=== PATIENT | male | born 1965 | race African-American/Black ===

== ENCOUNTER 2017-01-15 18:24 | Inpatient (IN) | payer MEDICAID ==
[~2017-01-15] VITALS: Ht 175.3 cm; Wt 66.7 kg
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
--- NOTE | 2017-01-15 18:35 | NUR ---
DR WARREN AT BEDSIDE FOR EVAL.
[2017-01-15 18:42] LABS: BASOPHILS # (AUTO) 0.1 /CMM (0.0-0.2)
[2017-01-15] MEDS ORDERED: IV NS 0.9% 1,000 ML ONE ×2 (18:45→19:46)
[2017-01-15] MEDS ORDERED: IV SET PRIMARY 1 EA INFUS.SET MC ONE (18:45)
[2017-01-15] MEDS ORDERED: IV NS 0.9% 500 ML IV ONE (18:45)
[2017-01-15] MEDS ORDERED: AMMONIA NASAL INHALATION 1 EA PACK NAS ONE (18:46)
[2017-01-15 18:47] LABS: BASOPHILS % (AUTO) 0.8 % (0.0-2.0); HEMATOCRIT 50 % (39-51); HEMOGLOBIN 16.7 g/dL (13.5-17.5); LYMPHOCYTES # (AUTO) 0.7 /CMM (0.8-4.8); LYMPHOCYTES % (AUTO) 5.5 % (20.0-44.0); MEAN CORPUSCULAR HEMOGLOBIN 30 PG (26.0-33.0); MEAN CORPUSCULAR HGB CONC 33 g/dl (31.0-36.0); MEAN CORPUSCULAR VOLUME 91 fL (80-96); MONOCYTES # (AUTO) 1.1 /CMM (0.1-1.30); MONOCYTES % (AUTO) 8.9 % (2.0-12.0); NEUTROPHILS # (AUTO) 10.5 /CMM (1.8-8.9); NEUTROPHILS % (AUTO) 84.8 % (43.0-81.0); PLATELET COUNT (AUTO) 293 /CMM (150-450); RDW COEFFICIENT OF VARIATION 13.3 (11.5-15.0); RED BLOOD CELL COUNT(AUTO) 5.54 MIL/uL (4.5-6.0); WHITE BLOOD COUNT (AUTO) 12.4 K/uL (4.3-11.0)
[2017-01-15 18:52] LABS: CALCIUM, SERUM 8.3 mg/dL (8.5-10.1); CARBON DIOXIDE 25 mmol/L (21-32); CHLORIDE 102 mmol/L (98-107); GFR 10 mL/min (>60); GLUCOSE 101 mg/dL (74-106); POTASSIUM 4.7 mmol/L (3.5-5.1); SODIUM SERUM 140 mmol/L (136-145); UREA NITROGEN, BLOOD 34 mg/dL (7-18)
[2017-01-15] MEDS ORDERED: IV NS 0.9% 1,000 ML IV ONE ×2 (19:00→19:30)
[2017-01-15] MEDS ORDERED: IV NS 0.9% 500 ML BAG IV ONE (19:00)
[2017-01-15 19:04] LABS: APPEARANCE,URINE Clear (CLEAR); BILIRUBIN,URINE SMALL (NEGATIVE); BLOOD, URINE Moderate Ery/uL (NEGATIVE); COLOR,URINE Yellow (YELLOW); KETONES,URINE Negative (NEGATIVE); LEUKOCYTE ESTERASE ,URINE Negative (NEGATIVE); NITRITE, URINE Negative (NEGATIVE); PH,URINE 5.5 (5.0-8.0); PROTEIN,URINE 100 mg/dl (NEGATIVE); UGLUCOSE Negative (NEGATIVE); UROBILINOGEN,URINE 0.2 EU/dL (0.2)
[2017-01-15 19:04] LABS: INR 1.02 (0.87-1.13); PROTHROMBIN TIME 10.6 SECS (9.5-12.7)
--- NOTE | 2017-01-15 19:04 | NUR ---
DR CHAVEZ PROFESSIONAL GOLF TOURNAMENT PLAYER FOR [facility] PAGED FOR CONSULT
[2017-01-15 19:05] LABS: ALANINE AMINOTRANSFERASE 79 U/L (12-78); ALBUMIN 4.1 g/dL (3.4-5.0); ALKALINE PHOSPHATASE 90 U/L (46-116); ASPARTATE AMINOTRANSFERASE 285 U/L (15-37); BILIRUBIN,DIRECT 0.2 mg/dL (0.0-0.2); BILIRUBIN,TOTAL 0.7 mg/dL (0.2-1.0); SALICYLATE 3.2 mg/dL (2.8-20.0); TOTAL PROTEIN, SERUM 8.8 g/dL (6.4-8.2)
[2017-01-15 19:11] LABS: CANNABINOID, URINE NEGATIVE (NEGATIVE); PHENCYCLIDINE SCREEN,URINE NEGATIVE (NEGATIVE)
[2017-01-15 19:16] LABS: ACETAMINOPHEN < 2 ug/ml (10-30); ALCOHOL, BLOOD < 3 mg/dL (0-0)
[2017-01-15 19:17] LABS: ADD URINE CULTURE NO; BACTERIA,URINE Rare /HPF (None Seen); WBC,URINE 0-2 /HPF (0-3)
[2017-01-15 19:18] LABS: SQUAMOUS EPITHELIAL CELL,UR Few /HPF (None Seen)
[2017-01-15 19:22] LABS: ABG BASE EXCESS -8.8 mmol/L; ABG OXYGEN SATURATION 96.9 % (92.0-98.5); ABG PCO2 61.1 mmHg (35.0-45.0); ABG PH 7.153 (7.350-7.450); ABG PO2 120.1 mmHg (75.0-100.0); ABG TOTAL HEMOGLOBIN 15.8 G/dL (13.5-18.0); AaDO2 531.8 mmHg; COHb 0.9 % (0.5-1.5); MetHb 0.6 % (0.0-1.5); O2Hb 95.4 % (94.0-97.0); SITE, ABG Right Brachial; VENT MODE, BG 100% NRB MASK
[2017-01-15 19:27] LABS: BAND % (MANUAL) 17 % (0.0-5.0); LYMPHOCYTES % (MANUAL) 13 % (16-48); MONOCYTES % (MANUAL) 4 % (0-11.0); NEUTROPHILS % (MANUAL) 64 (42-76); REACTIVE LYMPHOCYTES 2 % (0-0)
[2017-01-15 19:28] LABS: ANISOCYTOSIS 1+; PLATELET ESTIMATE ADEQU
[2017-01-15] MEDS ORDERED: NALOXONE PREFILLED SYRINGE 2 MG/2 ML SYRINGE ONE (19:29)
[2017-01-15] MEDS ORDERED: NALOXONE HCL 0.4 MG/ML AMPUL IV ONE (19:30)
[2017-01-15] MEDS ORDERED: LORAZEPAM INJ 2 MG/ML VIAL ONE ×2 (19:37→23:50)
--- NOTE | 2017-01-15 19:45 | NUR ---
PT ASSIGNED ROOM 260
[2017-01-15] MEDS ORDERED: LORAZEPAM INJ 2 MG/ML VIAL IV ONE (20:00)
[2017-01-15] MEDS ORDERED: IV NS 0.9% 1,000 ML IV PRN (20:09)
--- NOTE | 2017-01-15 20:21 | NUR ---
REPORT GIVEN TO ED RN FOR CONTINUITY OF CARE IN ICU
[2017-01-15] MEDS ORDERED: LEVOFLOXACIN 750 MG /D5W 150ML 750 MG in PREMIX 1 EA IV SCH (20:30)
[2017-01-15] MEDS ORDERED: ONDANSETRON HCL/PF 4 MG/2 ML VIAL IVP PRN (20:30)
[2017-01-15 20:39] VITALS: BP 119/72
[2017-01-15 21:00] VITALS: BP 106/70
[2017-01-15] MEDS ORDERED: LEVOFLOXACIN 750 MG /D5W 150ML 150 ML IV ONE (21:20)
[2017-01-15] MEDS ORDERED: IV SET PRIMARY PUMP SET 1 EA INFUS.SET MC ONE (21:22)
[2017-01-15] MEDS ORDERED: SECONDARY IV SET 1 EA INFUS.SET MC ONE (21:23)
[2017-01-15 21:30] VITALS: BP 107/72
[2017-01-15 21:39] VITALS: BP 107/72
[2017-01-15 22:00] VITALS: BP_SYST 111; BP_SYST 119; BP_DIAS 72; BP_DIAS 73
[2017-01-15 22:09] LABS: ABG BASE EXCESS -9.7 mmol/L; ABG OXYGEN SATURATION 98.4 % (92.0-98.5); ABG PCO2 53.1 mmHg (35.0-45.0); ABG PH 7.175 (7.350-7.450); ABG PO2 160.6 mmHg (75.0-100.0); ABG TOTAL HEMOGLOBIN 15.2 G/dL (13.5-18.0); AaDO2 499.3 mmHg; COHb 0.7 % (0.5-1.5); MetHb 0.7 % (0.0-1.5); PEEP,BG 8 cm H2O; SITE, ABG Right Radial; VENT MODE, BG s/t 18 20/8 100%
[2017-01-15 22:21] LABS: CREATINE KINASE MB 174.3 ng/mL (0-3.6)
[2017-01-15 23:00] VITALS: BP 99/75
[2017-01-15] MEDS: LORAZEPAM INJ 2 MG/ML VIAL IV PRN (23:54)
[2017-01-16] VITALS (46 sets, daily range): BP systolic 95–138; BP diastolic 57–84
[2017-01-16 02:34] LABS: CALCIUM, SERUM 7.1 mg/dL (8.5-10.1); CREATININE 5.2 mg/dL (0.6-1.3); POTASSIUM 6.1 mmol/L (3.5-5.1)
[2017-01-16] MEDS ORDERED: CALCIUM CHLORIDE 1,000 MG/10 ML DISP.SYRIN ONE (03:25)
[2017-01-16] MEDS ORDERED: IV D5W 0 ML IV ONE (03:26)
[2017-01-16] MEDS ORDERED: DEXTROSE 50%-WATER 50 ML DISP.SYRIN ONE (03:26)
[2017-01-16] MEDS ORDERED: IV SET PRIMARY PUMP SET 1 EA INFUS.SET MC ONE ×2 (03:27→03:48)
[2017-01-16] MEDS ORDERED: DEXTROSE 50%-WATER 50 ML DISP.SYRIN IVP ONE (03:30)
[2017-01-16] MEDS ORDERED: CALCIUM CHLORIDE 1,000 MG/10 ML DISP.SYRIN IV ONE (03:30)
[2017-01-16] MEDS ORDERED: INSULIN REGULAR, HUMAN 100 UNIT/ML 3 ML VIAL IV ONE (03:30)
[2017-01-16] MEDS ORDERED: LORAZEPAM INJ 2 MG/ML VIAL ONE (03:41)
[2017-01-16] MEDS: LORAZEPAM INJ 2 MG/ML VIAL IV PRN ×2 (03:45→21:52)
[2017-01-16] MEDS ORDERED: PROPOFOL 100 ML IV ONE (03:50)
[2017-01-16] MEDS ORDERED: IV NS 0.9% 500 ML IV ONE ×2 (03:58→04:00)
[2017-01-16] MEDS: PROPOFOL 100 ML IV PRN (04:04)
[2017-01-16] MEDS ORDERED: LEVOFLOXACIN 750 MG /D5W 150ML 750 MG in PREMIX 1 EA IV SCH (04:30)
[2017-01-16 04:40] LABS: HEMATOCRIT 41 % (39-51); HEMOGLOBIN 13.4 g/dL (13.5-17.5); LYMPHOCYTES # (AUTO) 0.4 /CMM (0.8-4.8); MEAN CORPUSCULAR HEMOGLOBIN 30 PG (26.0-33.0); MEAN CORPUSCULAR HGB CONC 33 g/dl (31.0-36.0); MEAN CORPUSCULAR VOLUME 91 fL (80-96); MONOCYTES # (AUTO) 0.4 /CMM (0.1-1.30); MONOCYTES % (AUTO) 5.5 % (2.0-12.0); NEUTROPHILS # (AUTO) 6.4 /CMM (1.8-8.9); NEUTROPHILS % (AUTO) 88.5 % (43.0-81.0); PLATELET COUNT (AUTO) 204 /CMM (150-450); RDW COEFFICIENT OF VARIATION 13.8 (11.5-15.0); RED BLOOD CELL COUNT(AUTO) 4.51 MIL/uL (4.5-6.0); WHITE BLOOD COUNT (AUTO) 7.2 K/uL (4.3-11.0)
[2017-01-16] MEDS ORDERED: VANCOMYCIN 1 GM VIAL ONE (04:43)
[2017-01-16] MEDS ORDERED: IV D5W 250 ML IV ONE (04:44)
[2017-01-16 04:55] LABS: CALCIUM, SERUM 6.7 mg/dL (8.5-10.1); CREATININE 5.6 mg/dL (0.6-1.3); PHOSPHORUS 7.7 mg/dL (2.5-4.9); POTASSIUM 5.2 mmol/L (3.5-5.1)
[2017-01-16] MEDS ORDERED: VANCOMYCIN 1 GM in IV D5W 250 ML IV ONE (05:00)
[2017-01-16] MEDS ORDERED: IV NS 0.9% 1,000 ML ONE (05:33)
[2017-01-16] MEDS: IV NS 0.9% 1,000 ML IV PRN ×3 (05:37→19:27)
--- NOTE | 2017-01-16 06:00 | NUR ---
MERCHANDISE SHOPPER PT WAS ADMITTED FROM ER WITH DIAGNOSIS RESPIRATORY FAILURE, POSSIBLE ASPIRATION, PNA, AMS, DRUG OVERDOSE. URINE DRUG SCREEN POSITIVE FOR AMPHETAMINE & OPIATES. PT WAS PLACED ON BIPAP. NS IV 2.5 L. BOLUS GIVEN. BILATERAL SCATTERED RHONCHI, SCOPE - ST. AFEBRILE. F/C WAS INSERTED. IV NS RATE WAS CHANGED FROM 100 ML/H TO 150 ML/H. STARTED LEVAQUIN & VANCO IVPB. REMAINS NPO.@ 4.AM. PT WAS INTUBATED AND PLACED ON VENTILATOR-SETTING AC 18, TV-550, FIO2 60%,PEEP+5. STARTED PROPOFOL DRIP, TITRATED FOR MILD SEDATION. PT IS SUPPOSED TO HAVE SOAPING DEPARTMENT SUPERVISOR /ACUTE RENAL FAILURE/, MANAGER [employer]ICS EXPERT /CREATINE KINASE-[id number], CK-MB-174, BNP-632./ CONSULTATIONS IN A.M. `
[2017-01-16 06:16] LABS: ABG BASE EXCESS -8.8 mmol/L; ABG OXYGEN SATURATION 96.2 % (92.0-98.5); ABG PH 7.226 (7.350-7.450); ABG PO2 93.8 mmHg (75.0-100.0); ABG TOTAL HEMOGLOBIN 13.9 G/dL (13.5-18.0); AaDO2 283.4 mmHg; COHb 0.6 % (0.5-1.5); MetHb 0.5 % (0.0-1.5); O2Hb 95.1 % (94.0-97.0); PEEP,BG 5 cm H2O; SITE, ABG Right Radial; VENT MODE, BG AC 18 550 60% +5; VT, ABG 550 mL
--- NOTE | 2017-01-16 08:00 | NUR ---
SOLUTIONS MARKET CONSULTANT NOTE: RECEIVED PATIENT INTUBATED ETT 7.5 23CMS AT THE LIP ON VENT AC 18 TV 550 FIO2 40% PEEP OF 5, NO RESPIRATORY DISTRESS NOTED. PATIENT SR ON TELE MONITOR HR 97. CURRENTLY SEDATED ON DIPRIVAN AT 20MCG/KG/MIN, RIGHT AND LEFT AC 18G PIV'S PATENT AND INTACT. RUNNING NS @150ML/HR. NO OVERLOAD NOTED. NEWTON CATHETER DRAINING TO GRAVITY TEA COLOR URINE WITH SEDIMENTS NOTED, STRICT I & O REQUIRED. SKIN NOTED TO BE INTACT. PATIENT TURNED AND REPOSITIONED, EXTREMITIES OFFLOADED. SKIN CARE RENDERED. SAFETY MEASURES OBSERVED. CALL LIGHT PLACED WITHIN REACH. ONGOING MONITORING.
[2017-01-16] MEDS ORDERED: FEE PK DOSING 1 MIN EA MC ONE (08:22)
[2017-01-16] MEDS: PANTOPRAZOLE 40 MG VIAL IV SCH (08:41)
[2017-01-16] MEDS ORDERED: SODIUM POLYSTYRENE SULFONATE 15 G/60 ML BOTTLE PO ONE (09:30)
--- NOTE | 2017-01-16 10:00 | NUR ---
REDRAWER NOTE: SEDATION VACATION PROVIDED, SEDATION TITRATED DOWN AND TURNED OFF. PATIENT AWAKE AND ABLE TO FOLLOW COMMANDS, VSS OFF DIPRIVAN. NO DISTRESS NOTED. DR. WOODRUFF AT BEDSIDE RECEIVED ORDER TO KEEP PATIENT OFF BIPAP FOR POSSIBLE AFTERNOON EXTUBATION. ONGOING MONITORING
--- NOTE | 2017-01-16 10:30 | NUR ---
BRINE MAKER NOTE: NGT PLACED IN RIGHT NARE PER ORDER, PATIENT TOLERATED PROCEDURE WELL. PLACEMENT VERIFIED BY TWO RN'S. ONGOING MONITORING
[2017-01-16] MEDS ORDERED: ETOMIDATE 2 MG/ML VIAL IV ONE (11:36)
[2017-01-16] MEDS ORDERED: ROCURONIUM BROMIDE 50 MG/5 ML IV ONE (11:36)
[2017-01-16 12:20] LABS: CREATININE, URINE 145.3 MG/DL (30.0-125.0)
--- NOTE | 2017-01-16 13:00 | NUR ---
COMMERCIAL ATTORNEY NOTE; CALL MADE TO DR. QUILES REGARDING DVT CHEMICAL PROPHYLAXIS, RECEIVED ORDER FOR HEPARIN 5000U TID. ORDER READ BACK AND VERIFIED WILL CARRY OUT.
[2017-01-16] MEDS ORDERED: ENOXAPARIN SODIUM 40 MG/0.4 ML DISP.SYRIN SQ SCH (13:30)
--- NOTE | 2017-01-16 15:38 | NUR ---
MACHINE QUILT STUFFER NOTE: DR. WOODRUFF AT BEDSIDE, PATIENT ALERT AND ORIENTED FOLLOWING COMMANDS PLACED ON CPAP, SETTINGS ORDERED. PLAN FOR EXTUBATION. VSS. ONGOING MONITORING
[2017-01-16 16:14] LABS: ABG BASE EXCESS -9.8 mmol/L; ABG OXYGEN SATURATION 92.1 % (92.0-98.5); ABG PCO2 50.2 mmHg (35.0-45.0); ABG PH 7.186 (7.350-7.450); ABG PO2 72.5 mmHg (75.0-100.0); ABG TOTAL HEMOGLOBIN 14.2 G/dL (13.5-18.0); COHb 0.8 % (0.5-1.5); MetHb 0.5 % (0.0-1.5); O2Hb 90.9 % (94.0-97.0); SITE, ABG Left Brachial; VENT MODE, BG PS 12
--- NOTE | 2017-01-16 16:30 | NUR ---
POLITICAL GEOGRAPHER NOTE: PATIENT RESTING COMFORTABLY IN BED, OFF SEDATION. AWAKE AND ALERT X2 ABLE TO FOLLOW COMMANDS. PLACED BACK ON AC MODE WITH VENT SETTINGS AC 18 TV 600 FIO2 40% PEEP 5. PATIENT TOLERATING SETTINGS WELL. NO DISTRESS NOTED, STACHY ON MONITOR, PIV'S PATENT AND INTACT RUNNING NS @ 150ML/HR. RIGHT NARE NGT PATENT AND INTACT. BED BATH GIVEN, PATIENT TURNED AND REPOSITIONED, SKIN INTACT. ORAL CARE RENDERED AND ALL NEEDS MET. MEDICATIONS ADMINISTERED ORDERED, BILATERAL SOFT WRIST RESTRAINTS IN PLACE TO PREVENT UNPLANNED EXTUBATION. SAFETY MEASURES OBSERVED. CALL LIGHT PLACED WITHIN REACH. ONGOING MONITORING
[2017-01-16] MEDS: HEPARIN SODIUM, PORCINE 5000 UNITS/1 ML VIAL SQ SCH (17:09)
[2017-01-16] MEDS: PIPERACILLIN /TAZOBACTAM 2.25 G in IV D5W 50 ML IV SCH (18:18)
--- NOTE | 2017-01-16 19:30 | NUR ---
Received patient resting oriented x 2.Follows simple commands.Currently intubated to vent on same settings.With bilateral soft wrist restraints on to prevent self extubation.Off sedation.ST per monitor 108-110.VS stable.Hemodynamically stable.No acute distress noted.Right nares NGT intact , placement verified and clamped.NPO status maintained.Hydration in progress to LAC PIV.FC to gravity drainage with lory urine.Continue monitoring.
[2017-01-16] MEDS: ALBUTEROL HALF STRENGTH 1.25 MG/3 ML VIAL.NEB NEB SCH ×2 (20:17→23:06)
[2017-01-16] MEDS: IPRATROPIUM NEB FS 0.5 MG/2.5 ML AMPUL.NEB NEB SCH ×2 (20:18→23:06)
--- NOTE | 2017-01-16 21:52 | NUR ---
Patient awake and very agitated trying to sit up in bed reaching for ET tube.Ativan 1 mg iv given as PRN.
[2017-01-17] VITALS (45 sets, daily range): BP systolic 112–154; BP diastolic 43–92
--- NOTE | 2017-01-17 | NUR ---
Patient resting.VS stable.No distress noted.
[2017-01-17] MEDS: IV NS 0.9% 1,000 ML IV PRN ×3 (02:18→17:05)
[2017-01-17] MEDS: IPRATROPIUM NEB FS 0.5 MG/2.5 ML AMPUL.NEB NEB SCH ×6 (03:37→23:28)
[2017-01-17] MEDS: ALBUTEROL HALF STRENGTH 1.25 MG/3 ML VIAL.NEB NEB SCH ×6 (03:37→23:29)
--- NOTE | 2017-01-17 04:00 | NUR ---
Patient awake.VS stable.SR 91 per monitor.Bed bath rendered.Oral care done.Complete linens changed.Turned and repositioned.
[2017-01-17] MEDS: HEPARIN SODIUM, PORCINE 5000 UNITS/1 ML VIAL SQ SCH ×3 (04:40→21:05)
[2017-01-17] MEDS: LORAZEPAM INJ 2 MG/ML VIAL IV PRN ×2 (05:01→09:18)
[2017-01-17 05:15] LABS: BASOPHILS % (AUTO) 0.1 % (0.0-2.0); EOSINOPHILS % (AUTO) 0.1 % (0.0-6.0); HEMATOCRIT 36 % (39-51); HEMOGLOBIN 11.9 g/dL (13.5-17.5); LYMPHOCYTES % (AUTO) 10.9 % (20.0-44.0); MEAN CORPUSCULAR HEMOGLOBIN 30 PG (26.0-33.0); MEAN CORPUSCULAR HGB CONC 33 g/dl (31.0-36.0); MEAN CORPUSCULAR VOLUME 90 fL (80-96); MONOCYTES # (AUTO) 0.7 /CMM (0.1-1.30); MONOCYTES % (AUTO) 7.9 % (2.0-12.0); NEUTROPHILS # (AUTO) 7.6 /CMM (1.8-8.9); PLATELET COUNT (AUTO) 180 /CMM (150-450); RDW COEFFICIENT OF VARIATION 14.3 (11.5-15.0); RED BLOOD CELL COUNT(AUTO) 3.97 MIL/uL (4.5-6.0); WHITE BLOOD COUNT (AUTO) 9.3 K/uL (4.3-11.0)
[2017-01-17] MEDS: PIPERACILLIN /TAZOBACTAM 2.25 G in IV D5W 50 ML IV SCH ×6 (05:18→23:32)
[2017-01-17 05:23] LABS: CALCIUM, SERUM 7.6 mg/dL (8.5-10.1); CREATININE 7.2 mg/dL (0.6-1.3); MAGNESIUM 1.9 mg/dL (1.8-2.4); PHOSPHORUS 5.6 mg/dL (2.5-4.9); POTASSIUM 4.5 mmol/L (3.5-5.1)
--- NOTE | 2017-01-17 06:00 | NUR ---
Patient resting.VS stable.Received 2 doses of ativan during the shift.All due medication administered.Repositioned.
[2017-01-17 06:15] LABS: CREATINE KINASE MB 54.7 ng/mL (0-3.6)
--- NOTE | 2017-01-17 07:38 | NUR ---
CAM SPECIALIST RECEIVED PATIENT FROM THE PREVIOUS SHIFT. PATIENT IN BED. ORALLY INTUBATED. OFF SEDATION. RESTRAINTS ARE ON FOR SAFETY. VENT SETTINGS REVIEWED AND VERIFIED. ORAL SECRETIONS MONITORED. AFEBRILE. SINUS RHYTHM ON MONITOR. ALERT AND ABLE TO FOLLOW COMMANDS. URINE OUTPUT MONITORED. WILL CONTINUE TO MONITOR AND PROVIDE CARE.
--- NOTE | 2017-01-17 08:01 | NUR ---
BINDING PRINTER PATIENT IS ALERT AND AWAKE. ABLE TO FOLLOW COMMANDS. MOVES ALL 4 EXTREMITIES UPON COMMAND.
[2017-01-17 09:05] LABS: BAND % (MANUAL) 22 % (0.0-5.0); LYMPHOCYTES % (MANUAL) 5 % (16-48); MONOCYTES % (MANUAL) 1 % (0-11.0); NEUTROPHILS % (MANUAL) 72 (42-76)
[2017-01-17 09:06] LABS: PLATELET ESTIMATE ADEQUATE
[2017-01-17] MEDS ORDERED: IV SET PRIMARY PUMP SET 1 EA INFUS.SET MC ONE ×2 (09:13→20:14)
[2017-01-17] MEDS: PANTOPRAZOLE 40 MG VIAL IV SCH (09:18)
[2017-01-17] MEDS: PROPOFOL 100 ML IV PRN ×3 (09:18→22:39)
--- NOTE | 2017-01-17 09:45 | NUR ---
EFFICIENCY MINER PATIENT WAS SEEN BY HEALTHCARE PROF. AWARE OF PATIENT'S ABG. RECEIVED ORDERS TO RE SEDATE THE PATIENT WITH DIPRIVAN FOR AGITATION.
[2017-01-17] MEDS ORDERED: Calcium Gluconate 1GM/10ML 4.65 MEQ in IV D5W 50 ML IV ONE (13:00)
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
--- NOTE | 2017-01-17 17:49 | NUR ---
RT END OF THE SHIFT: PT. 51 Y OLD MALE REMAIN ORALLY INTUBATED, ETT# 7.5 @ 23 CM LIP LINE. SECURED ON VENT WITH NOTED SETTINGS, ALARMS ARE SET AND FUNCTIONAL. AND B/S BILATERALLY RALES, PIZARRO'XD FOR MINIMAL AMT OF SECRETION, ( VENT CHANGES VT 650 ML ) PER D. PELEG POST ABG. TX'S GIVEN INLINE AND HARPREET. WELL, HME CHANGED AND JUICE STANDARDIZER DONE. EQUAL CHEST RISE NOTED. PT. REMAIN STABLE. VENT PLUGGED INTO RED OUTLET. REPORT WILL PASS TO PM SHIFT Addendum: 01/17/17 at 1753 by PRITESH GALVEZ RT Amended: Links added.
--- NOTE | 2017-01-17 19:30 | NUR ---
Received patient sedated on Diprivan DRIP @ 40 mcg/kg/min to RAC and hydrated with NS @ 150ml/hr both infusing well. Maintained on same prescribed vent setting well tolerated.Suctioned moderate amount white thick secretion and oral care done.SR per monitor.Afebrile.Hemodynamically stable.Remain NPO R NGT intact and placement verified.FC with yellow urine. Turned and repositioned to comfort offloading pressure points.With ongoing bedside echocardiogram.No distress noted.
[2017-01-17] MEDS ORDERED: SECONDARY IV SET 1 EA INFUS.SET MC ONE (21:03)
[2017-01-17] MEDS: LEVOFLOXACIN 500 MG /D5W 100ML 500 MG in PREMIX 1 EA IV SCH (21:04)
[2017-01-17] MEDS ORDERED: IV NS 0.9% 250 ML IV ONE (21:39)
[2017-01-18] VITALS (45 sets, daily range): BP systolic 109–138; BP diastolic 67–89
[2017-01-18] MEDS: IV NS 0.9% 1,000 ML IV PRN ×3 (00:41→15:54)
[2017-01-18] MEDS: PROPOFOL 100 ML IV PRN ×5 (02:30→23:45)
[2017-01-18] MEDS: ALBUTEROL HALF STRENGTH 1.25 MG/3 ML VIAL.NEB NEB SCH ×6 (03:06→23:42)
[2017-01-18] MEDS: IPRATROPIUM NEB FS 0.5 MG/2.5 ML AMPUL.NEB NEB SCH ×6 (03:06→23:42)
[2017-01-18 05:02] LABS: BASOPHILS % (AUTO) 0.2 % (0.0-2.0); EOSINOPHILS # (AUTO) 0.1 /CMM (0.0-0.7); EOSINOPHILS % (AUTO) 0.8 % (0.0-6.0); HEMATOCRIT 35 % (39-51); HEMOGLOBIN 11.8 g/dL (13.5-17.5); LYMPHOCYTES # (AUTO) 0.9 /CMM (0.8-4.8); LYMPHOCYTES % (AUTO) 11.8 % (20.0-44.0); MEAN CORPUSCULAR HEMOGLOBIN 30 PG (26.0-33.0); MEAN CORPUSCULAR HGB CONC 33 g/dl (31.0-36.0); MEAN CORPUSCULAR VOLUME 90 fL (80-96); MONOCYTES # (AUTO) 0.7 /CMM (0.1-1.30); MONOCYTES % (AUTO) 8.6 % (2.0-12.0); NEUTROPHILS # (AUTO) 6.1 /CMM (1.8-8.9); NEUTROPHILS % (AUTO) 78.6 % (43.0-81.0); PLATELET COUNT (AUTO) 208 /CMM (150-450); RDW COEFFICIENT OF VARIATION 14.3 (11.5-15.0); RED BLOOD CELL COUNT(AUTO) 3.94 MIL/uL (4.5-6.0); WHITE BLOOD COUNT (AUTO) 7.8 K/uL (4.3-11.0)
[2017-01-18] MEDS: HEPARIN SODIUM, PORCINE 5000 UNITS/1 ML VIAL SQ SCH ×3 (05:07→21:47)
[2017-01-18 05:13] LABS: CALCIUM, SERUM 7.7 mg/dL (8.5-10.1); POTASSIUM 4.6 mmol/L (3.5-5.1)
[2017-01-18 05:32] LABS: CREATININE 7.8 mg/dL (0.6-1.3)
[2017-01-18] MEDS: PIPERACILLIN /TAZOBACTAM 2.25 G in IV D5W 50 ML IV SCH ×4 (05:48→23:45)
[2017-01-18] MEDS ORDERED: VANCOMYCIN 1 GM in IV D5W 250 ML IV SCH (06:00)
--- NOTE | 2017-01-18 06:24 | NUR ---
Patient resting.VS stable.Hemodynamically stable.AM care done.All due medications administered. No significant change noted during the shift.Good urine output only creatinine level trending up 7.8. Will endorse to AM shift RN for continuity of care.No distress noted.
[2017-01-18 06:29] LABS: EOSINOPHILS % (MANUAL) 1 % (0-4); LYMPHOCYTES % (MANUAL) 13 % (16-48); MONOCYTES % (MANUAL) 6 % (0-11.0); NEUTROPHILS % (MANUAL) 80 (42-76); PLATELET ESTIMATE ADEQUATE
--- NOTE | 2017-01-18 07:40 | NUR ---
SORTER LAUNDRY ARTICLES: pt.is sedated well with 40mcg Diprivan gtt, reactive for pain stimuli, SR, SBP over 100, O2 sat. WNL, wrists restraints, urine output 1100ml/12hr, creat 7.8, by report: keep pt.sedated well/no sedation vacation for today d/t worse rhabdomyolysis/KD per
[2017-01-18] MEDS ORDERED: IV SET PRIMARY PUMP SET 1 EA INFUS.SET MC ONE ×2 (08:20→20:33)
[2017-01-18] MEDS: PANTOPRAZOLE 40 MG VIAL IV SCH (08:25)
[2017-01-18 08:58] LABS: ABG BASE EXCESS -8.7 mmol/L; ABG OXYGEN SATURATION 96.5 % (92.0-98.5); ABG PCO2 28.6 mmHg (35.0-45.0); ABG PH 7.353 (7.350-7.450); ABG PO2 97.7 mmHg (75.0-100.0); ABG TOTAL HEMOGLOBIN 12.2 G/dL (13.5-18.0); AaDO2 154.6 mmHg; COHb 0.3 % (0.5-1.5); O2Hb 95.2 % (94.0-97.0); SITE, ABG Right Radial; VENT MODE, BG AC 18 650 40% +5
--- NOTE | 2017-01-18 09:00 | NUR ---
ELECTRONICS SCALE TESTER: , are in room, updated with pt.current condition, VS, sedation level, creatinine 7.8, urine out 1100/12hrs, I/O, labs, meds, IVF, said: keep pt.sedated well, no sedation vacation for today, see new orders
[2017-01-18] MEDS ORDERED: Calcium Gluconate 1GM/10ML 4.65 MEQ in IV D5W 50 ML IV ONE (09:30)
[2017-01-18] MEDS ORDERED: SECONDARY IV SET 1 EA INFUS.SET MC ONE (09:30)
--- NOTE | 2017-01-18 09:30 | NUR ---
ROLL TESTER: is in room, updated with all above, see new orders
--- NOTE | 2017-01-18 19:30 | NUR ---
ICU REGISTERED NURSE: PT RECEIVED ORALLY INTUBATED AND TOLERATING VENT SETTINGS ORDERED. NO ACUTE DISTRESS, NO EVIDENCE OF DISCOMFORT. SEDATED ON DIPRIVAN AT 40MCG/KG/MIN AND WITHDRAWS TO LOCALIZED PAIN. SR ON TRIGONOMETRY TEACHER. AFEBRILE. ON NS AT 100ML/HR. NO S/S OF INFILTRATION ON IV SITES. NGT IN PLACE AND CLAMPED. F/C PATENT AND INTACT DRAINING YELLOW URINE TO GRAVITY. BILAT. SOFT WRIST RESTRAINTS IN PLACE FOR EPISODES OF TRYING TO REACH FOR TUBINGS. NOTED WT GOOD CIRCULATION AND NO SKIN BREAKDOWN WHEN RESTRAINTS WERE RELEASED AND CHECKED. SAFETY PRECAUTION NOTED. WILL CONTINUE TO MONITOR.
--- NOTE | 2017-01-18 21:51 | NUR ---
PT INTUBATED ON VENT 7.5 ETT SECURED AT 24CM AT THE LIP. NO RESP DISTRESS PT TOLERATING VENT SETTINGS. SX'D FOR MOD AMT OF THICK YELLOW SECRETIONS. VENT ALARMS SET AND AUDIBLE. PRETTY [place]AM AT [facility]. WILL CONTINUE TO MONITOR. Addendum: 01/18/17 at 2152 by JERONIMO SMITH RT Amended: Links added.
[2017-01-19] VITALS (41 sets, daily range): BP systolic 111–147; BP diastolic 63–90
[2017-01-19] MEDS: IV NS 0.9% 1,000 ML IV PRN ×2 (01:31→11:19)
--- NOTE | 2017-01-19 02:00 | NUR ---
AGRICULTURAL SERVICES DIRECTOR: BED BATH GIVEN AND TOLERATED FAIRLY. SR TO ST ON GEOSCIENCES PROFESSOR WT HR IN THE 90s TO LOW 100s. GOOD ORAL CARE RENDERED. SUCTIONED WT MODERATE AMT. OF THICK BARROW SECRETIONS.
[2017-01-19] MEDS: PROPOFOL 100 ML IV PRN ×4 (03:04→20:06)
[2017-01-19] MEDS: IPRATROPIUM NEB FS 0.5 MG/2.5 ML AMPUL.NEB NEB SCH ×6 (03:45→23:24)
[2017-01-19] MEDS: ALBUTEROL HALF STRENGTH 1.25 MG/3 ML VIAL.NEB NEB SCH ×6 (03:45→23:24)
[2017-01-19 04:37] LABS: BASOPHILS % (AUTO) 0.1 % (0.0-2.0); EOSINOPHILS # (AUTO) 0.1 /CMM (0.0-0.7); EOSINOPHILS % (AUTO) 0.9 % (0.0-6.0); HEMATOCRIT 35 % (39-51); HEMOGLOBIN 11.8 g/dL (13.5-17.5); LYMPHOCYTES # (AUTO) 0.7 /CMM (0.8-4.8); LYMPHOCYTES % (AUTO) 8.7 % (20.0-44.0); MEAN CORPUSCULAR HEMOGLOBIN 30 PG (26.0-33.0); MEAN CORPUSCULAR HGB CONC 34 g/dl (31.0-36.0); MEAN CORPUSCULAR VOLUME 89 fL (80-96); MONOCYTES # (AUTO) 1.1 /CMM (0.1-1.30); MONOCYTES % (AUTO) 13.6 % (2.0-12.0); NEUTROPHILS # (AUTO) 6.4 /CMM (1.8-8.9); NEUTROPHILS % (AUTO) 76.7 % (43.0-81.0); PLATELET COUNT (AUTO) 217 /CMM (150-450); RDW COEFFICIENT OF VARIATION 14.6 (11.5-15.0); RED BLOOD CELL COUNT(AUTO) 3.92 MIL/uL (4.5-6.0); WHITE BLOOD COUNT (AUTO) 8.3 K/uL (4.3-11.0)
[2017-01-19 04:56] LABS: CREATININE 7.7 mg/dL (0.6-1.3); MAGNESIUM 2.2 mg/dL (1.8-2.4); PHOSPHORUS 6.4 mg/dL (2.5-4.9); POTASSIUM 4.5 mmol/L (3.5-5.1)
[2017-01-19] MEDS: HEPARIN SODIUM, PORCINE 5000 UNITS/1 ML VIAL SQ SCH ×3 (05:16→21:40)
[2017-01-19 05:23] LABS: BAND % (MANUAL) 1 % (0.0-5.0); EOSINOPHILS % (MANUAL) 1 % (0-4); LYMPHOCYTES % (MANUAL) 12 % (16-48); MONOCYTES % (MANUAL) 14 % (0-11.0); NEUTROPHILS % (MANUAL) 72 (42-76); PLATELET ESTIMATE ADEQUATE
[2017-01-19] MEDS: PIPERACILLIN /TAZOBACTAM 2.25 G in IV D5W 50 ML IV SCH ×3 (05:25→21:40)
--- NOTE | 2017-01-19 06:45 | NUR ---
STOCK CLERK: STILL ON DIPRIVAN AT 40MCG/KG/MIN. NO ACUTE DISTRESS, NO EVIDENCE OF DISCOMFORT. ALL NEEDS MET. WILL ENDORSE TO DAY SHIFT FOR CONTINUITY OF CARE.
--- NOTE | 2017-01-19 07:14 | NUR ---
CONSTRUCTION ELECTRICIAN NOTES RECEIVED PATIENT SEDATED , RESPONSIVE TO PAIN STIMULI , NOT IN ACUTE DISTRESS , RESPIRATIONS EVEN AND UNLABORED WITH SPO2 OF 100% VIA MECHANICAL VENTILATOR SETTINGS ORDERED , ETT 7.02/[address] , SR 85 ON BEDSIDE MONITOR , NGT IN PLACE VERIFIED PLACEMENT VIA AUSCULTATION NOTED WITH GURGLING SOUND AROUND THE STOMACH AREA , FC DRAINING VIA GRAVITY WITH CLEAR YELLOW URINE , IV OF R AC # 18 WITH DIPRIVAN @ 40MCG/MIN , L AC @ 18 WITH NS @ 100ML/HR INFUSING WELL , ALL NEEDS ATTENDED , BED ON LOW AND LOCKED POSITION , SIDE RAILS X2 , HOB @ 45 WILL CONTINUE TO MONITOR .
[2017-01-19] MEDS: PANTOPRAZOLE 40 MG VIAL IV SCH (08:35)
--- NOTE | 2017-01-19 08:50 | NUR ---
SENIOR PLANNER NOTES DR SPIVEY AT BEDSIDE , DISCUSSED LABS , BUN OF 69 CREATININE 7.7 , PHOS OF 6.4 , CA 8.0 WITH URINE OUTPUT OF 2150 CLEAR YELLOW URINE FOR 12 HOURS LAST NIGHT , V/ STABLE , AFEBRILE , NO WEANING PER MD FANNIE AWARE
--- NOTE | 2017-01-19 09:00 | NUR ---
INTERMEDIATE CARD TENDER NOTES PT ON SEDATION VACATION , WILL CONTINUE TO MONITOR
[2017-01-19 09:58] LABS: ABG BASE EXCESS -9.7 mmol/L; ABG PCO2 31.1 mmHg (35.0-45.0); ABG PO2 105.8 mmHg (75.0-100.0); ABG TOTAL HEMOGLOBIN 12.3 G/dL (13.5-18.0); AaDO2 143.6 mmHg; COHb 0.5 % (0.5-1.5); MetHb 0.8 % (0.0-1.5); O2Hb 95.7 % (94.0-97.0); PEEP,BG 5 cm H2O; SITE, ABG Right Radial; VT, ABG 650 mL
--- NOTE | 2017-01-19 10:00 | NUR ---
INSTANT POTATO PROCESSOR NOTES PROPOFOL RESTARTED @ 40MCG/MIN , PT NOTED TO BE ON DISTRESS , HR 130'S , AWAKE , ALERT ABLE TO FOLLOWS COMMANDS , WITH STRONG BILATERAL UPPER EXTREMITY ,
--- NOTE | 2017-01-19 10:40 | NUR ---
APPLICATIONS ADMINISTRATOR NOTES BRET SIMMONS WEB DESIGNER AT BEDSIDE , NOTIFIED PT IS AFEBRILE , V/S STABLE , WITH 2150 URINE OUTPUT FOR 12 HOURS LAST NIGHT , WEB DESIGNER AWARE
[2017-01-19] MEDS ORDERED: SECONDARY IV SET 1 EA INFUS.SET MC ONE (11:20)
[2017-01-19] MEDS ORDERED: IV SET PRIMARY PUMP SET 1 EA INFUS.SET MC ONE (11:20)
--- NOTE | 2017-01-19 12:05 | NUR ---
BREAKDOWN MAN NOTES SPOKE WITH DR SPIVEY , FOLLOW UP TUBE FEEDING , NOTIFIED PT NA OF 149 , PT ON IV OF NS @ 100ML/HR , PER MD CHANGE IVF TO 1/2 NS @ 100ML/HR , DECREASE THE RATE IF TOLERATES TUBE FEEDING , DIETARY CONSULT FOR FORMULA MAY ADD PHOSLO 1334 Q8H IF FEEDING WAS STARTED ALREADY.
[2017-01-19] MEDS: IV 1/2NS 1000 ML 1,000 ML IV PRN (12:30)
[2017-01-19] MEDS: CALCIUM ACETATE 667 MG TABLET GT SCH ×2 (15:14→21:39)
[2017-01-19] MEDS: RENAL NOVASOURCE 1,000 ML BOTTLE GT PRN (15:55)
[2017-01-19] MEDS: Z GUARD REMEDY 2 OZ OINT TP PRN (15:55)
--- NOTE | 2017-01-19 19:03 | NUR ---
SENIOR MECHANICAL ENGINEER NOTES PATIENT STABLE AT THIS TIME , NOT IN ACUTE DISTRESS , RESPIRATIONS EVEN AND UNLABORED WITH SPO2 OF 100% VIA MECHANICAL VENTILATOR SETTINGS ORDERED , ETT 7.02/[address]ACE , SR 75 ON BEDSIDE MONITOR , NGT IN PLACE VERIFIED PLACEMENT VIA AUSCULTATION NOTED WITH GURGLING SOUND AROUND THE STOMACH AREA NGT FEEDING OF NOVASOURCE @ 30ML/HR WITH 20ML RESIDUALS NOTED , FC DRAINING VIA GRAVITY WITH CLEAR YELLOW URINE NOTED WITH SEDIMENTS , IV OF R AC # 18 WITH DIPRIVAN @ 40MCG/MIN , RFA # 20 WITH 1/2NS @ 50ML/HR INFUSING WELL , L AC # 18 PATENT AND INTACT SL , , ALL NEEDS ATTENDED , BED ON LOW AND LOCKED POSITION , SIDE RAILS X2 , HOB @ 45 REPORT GIVEN TO DINA FOR CONTINUITY OF CARE
--- NOTE | 2017-01-19 20:00 | NUR ---
LNA INITIAL ASSESSMENT RCD PT W/DX RESP FAIL, ASP PNA; SEDATED ON DIPRIVAN AT 30 MCG/KG/MIN VIA R AC 18 G WELL BL SOFT WRIST RESTRAINTS PT EASILY WAKES UP AND IS NON COMPLIANT WITH NOT PULLING TUBES/LINES. NSR ON MONITOR. INTUBATED 7.5 @ 23 W/VENT SETTINGS AC 18 650 40% 5; PT HAS THICK WHITE SECRETIONS. RIGHT NARE NG TUBE W/ NOVASOURCE AT 30 ML/HR; MIN RESIDUAL NOTED. SKIN INTACT; WILL REPOSITION Q2HRS TO PREVENT SKIN BREAKDOWN; 1/2 NS @ 50 ML/HR VIA RFA 20G. LFA IV REMOVED IT IS LEAKING. HOB ELEVATED. BED LOCKED AND IN LOW POSITION. CONTINUE TO MONITOR.
[2017-01-19] MEDS: LEVOFLOXACIN 500 MG /D5W 100ML 500 MG in PREMIX 1 EA IV SCH (20:05)
[2017-01-20] VITALS (47 sets, daily range): BP systolic 96–166; BP diastolic 67–96
[2017-01-20] MEDS ORDERED: IV SET PRIMARY PUMP SET 1 EA INFUS.SET MC ONE ×3 (03:01→21:14)
[2017-01-20] MEDS: PROPOFOL 100 ML IV PRN ×5 (03:06→21:38)
[2017-01-20] MEDS: IPRATROPIUM NEB FS 0.5 MG/2.5 ML AMPUL.NEB NEB SCH ×6 (03:56→23:11)
[2017-01-20] MEDS: ALBUTEROL HALF STRENGTH 1.25 MG/3 ML VIAL.NEB NEB SCH ×6 (03:56→23:11)
[2017-01-20] MEDS: PIPERACILLIN /TAZOBACTAM 2.25 G in IV D5W 50 ML IV SCH ×3 (04:35→21:23)
[2017-01-20] MEDS: CALCIUM ACETATE 667 MG TABLET GT SCH ×3 (04:35→21:23)
[2017-01-20] MEDS: IV 1/2NS 1000 ML 1,000 ML IV PRN (04:36)
[2017-01-20] MEDS: HEPARIN SODIUM, PORCINE 5000 UNITS/1 ML VIAL SQ SCH ×3 (04:36→21:24)
[2017-01-20 05:12] LABS: BASOPHILS % (AUTO) 0.2 % (0.0-2.0); EOSINOPHILS # (AUTO) 0.1 /CMM (0.0-0.7); EOSINOPHILS % (AUTO) 0.9 % (0.0-6.0); HEMATOCRIT 37 % (39-51); HEMOGLOBIN 12.4 g/dL (13.5-17.5); LYMPHOCYTES # (AUTO) 1.1 /CMM (0.8-4.8); LYMPHOCYTES % (AUTO) 11.3 % (20.0-44.0); MEAN CORPUSCULAR HEMOGLOBIN 30 PG (26.0-33.0); MEAN CORPUSCULAR HGB CONC 34 g/dl (31.0-36.0); MEAN CORPUSCULAR VOLUME 89 fL (80-96); MONOCYTES # (AUTO) 1.6 /CMM (0.1-1.30); MONOCYTES % (AUTO) 16.6 % (2.0-12.0); NEUTROPHILS # (AUTO) 6.9 /CMM (1.8-8.9); PLATELET COUNT (AUTO) 229 /CMM (150-450); RDW COEFFICIENT OF VARIATION 14.5 (11.5-15.0); RED BLOOD CELL COUNT(AUTO) 4.12 MIL/uL (4.5-6.0); WHITE BLOOD COUNT (AUTO) 9.7 K/uL (4.3-11.0)
[2017-01-20 05:21] LABS: CALCIUM, SERUM 8.6 mg/dL (8.5-10.1); CREATININE 6.8 mg/dL (0.6-1.3); MAGNESIUM 2.2 mg/dL (1.8-2.4); PHOSPHORUS 5.3 mg/dL (2.5-4.9); POTASSIUM 4.7 mmol/L (3.5-5.1)
[2017-01-20 06:55] LABS: LYMPHOCYTES % (MANUAL) 2 % (16-48); MONOCYTES % (MANUAL) 20 % (0-11.0); NEUTROPHILS % (MANUAL) 78 (42-76)
[2017-01-20 06:56] LABS: ANISOCYTOSIS 1+; PLATELET ESTIMATE ADEQUATE
--- NOTE | 2017-01-20 07:15 | NUR ---
PARER NOTES RECEIVED PATIENT SEDATED , RESPONSIVE TO PAIN STIMULI , NOT IN ACUTE DISTRESS , RESPIRATIONS EVEN AND UNLABORED WITH SPO2 OF 100% VIA MECHANICAL VENTILATOR SETTINGS ORDERED , ETT 7.02/[address] , SR 95 ON BEDSIDE MONITOR , NGT IN PLACE VERIFIED PLACEMENT VIA AUSCULTATION NOTED WITH GURGLING SOUND AROUND THE STOMACH AREA , NGT FEEDING OF NOVASOURCE @ 30ML/HR NOTED WITH 50ML RESIDUALS , FC DRAINING VIA GRAVITY WITH CLEAR YELLOW URINE NOTED WITH SEDIMENTS , IV OF RIGHT FOREARM # 20 WITH DIPRIVAN @ 40MCG/MIN , R AC # 18 WITH 1/2 NS @ 50ML/HR INFUSING WELL , ALL NEEDS ATTENDED , BED ON LOW AND LOCKED POSITION , SIDE RAILS X2 , HOB @ 45 WILL CONTINUE TO MONITOR .
--- NOTE | 2017-01-20 07:28 | NUR ---
RT PT RECEIVED ORALLY INTUBATED WITH A 7.5 ETT SECURED AT 23CM AT THE LIP LINE ON THE VENT WITH NOTED SETTINGS. PT IS AWAKE BUT DOES NOT FOLLOW COMMANDS. VENT ALARMS ARE SET AND AUDIBLE WITH BVM BY BEDSIDE. LOOM MECHANIC CUFF PRESSURE NOTED. VENT IS PLUGGED INTO RED OUTLET. SX SMALL THICK YELLOW SECRETIONS. NO RESPIRATORY DISTRESS NOTED AT THIS TIME, WILL CONTINUE TO MONITOR. Addendum: 01/20/17 at 1038 by BARB KEE RT Amended: Links added.
[2017-01-20] MEDS: PANTOPRAZOLE 40 MG VIAL IV SCH (08:01)
[2017-01-20 08:35] LABS: ABG BASE EXCESS -6.6 mmol/L; ABG OXYGEN SATURATION 92.5 % (92.0-98.5); ABG PCO2 32.8 mmHg (35.0-45.0); ABG PH 7.356 (7.350-7.450); ABG PO2 71.1 mmHg (75.0-100.0); AaDO2 176.4 mmHg; COHb 0.3 % (0.5-1.5); MetHb 0.9 % (0.0-1.5); O2Hb 91.4 % (94.0-97.0); PEEP,BG 5 cm H2O; SITE, ABG Right Radial; VT, ABG 650 mL
--- NOTE | 2017-01-20 09:00 | NUR ---
WOOD TURNING LATHE OPERATOR NOTES PT TEMP OF 101.6 , TACHYCARDIC HR OF 120'S , COOLING MEASURES RENDERED , TYLENOL 650MG SUPPOSITORY ADMINISTERED , WILL CONTINUE TO MONITOR
[2017-01-20] MEDS: ACETAMINOPHEN 650 MG/SUPP.RECT RC PRN (09:16)
--- NOTE | 2017-01-20 09:45 | NUR ---
RENTAL SALES REPRESENTATIVE NOTES DR PELAEZ AT BEDSIDE , NOTIFIED PT HAS A TEMPERATURE OF 101.6F , TACHYCARDIC 120'S , BP OF 140/55 , RR OF 21 , DISCUSSED LABS , CHEST XRAY RESULT , PER MD HE WILL ORDER HARMAN CULTURES , AND NOTIFY HIM IF THE PT HAS EPISODE OF FEVER ,
[2017-01-20 11:41] LABS: APPEARANCE,URINE SL CLOUDY (CLEAR); BILIRUBIN,URINE NEGATIVE (NEGATIVE); BLOOD, URINE 3+ Ery/uL (NEGATIVE); COLOR,URINE YELLOW (YELLOW); KETONES,URINE NEGATIVE (NEGATIVE); LEUKOCYTE ESTERASE ,URINE NEGATIVE (NEGATIVE); NITRITE, URINE NEGATIVE (NEGATIVE); PROTEIN,URINE TRACE mg/dl (NEGATIVE); UGLUCOSE NEGATIVE (NEGATIVE); UROBILINOGEN,URINE 0.2 EU/dL (0.2)
[2017-01-20] MEDS: ACIDOPHILUS/BULGARICUS 1 EACH TAB.CHEW PO SCH ×2 (12:00→16:21)
--- NOTE | 2017-01-20 12:08 | NUR ---
ELECTRICIAN TELEPHONE NOTES DR ELMORE AT BEDSIDE , NOTIFY PT HAS EPISODE OF FEVER , TEMP OF 101.6 F , COOLING MEASURES RENDERED , TYLENOL 650MG SUPPOSITORY GIVEN , DISCUSSED LABS , TOLERATING NGT FEEDING OF NOVASOURCE @ 30ML/HR , WITH GOOD URINARY OUTPUT 1160 FOR 12 HOURS LAST NIGHT . NOTIFY LACTIC ACID OF 0.9 AND PROCALCITONIN OF 8.33 , AWARE
[2017-01-20 12:18] LABS: ADD URINE CULTURE NO; BACTERIA,URINE Rare /HPF (None Seen); RBC,URINE 21-50 /HPF (0-2); SQUAMOUS EPITHELIAL CELL,UR None Seen /HPF (None Seen); URIC ACID CRYSTALS,URINE Few /HPF (None Seen); WBC,URINE NONE SEEN /HPF (0-3)
--- NOTE | 2017-01-20 13:10 | NUR ---
TUB CHUCKER NOTES SPOKE WITH DR DRAPER , DISCUSSED LABS , NA OF 154 , BUN 70 ,CREATININE 6.8 WITH GOOD URINE OUTPUT 1160 FOR 12 HOURS , TOLERATING NGT FEEDING , T MAX OF 101.6 , COOLING MEASURES AND TYLENOL GIVEN , VERIFIED IF HE WANTS TO ORDER REPEAT [facility] AND CREATINE KINASE , NO NEW ORDERS RECEIVED
[2017-01-20] MEDS: RENAL NOVASOURCE 1,000 ML BOTTLE GT PRN (16:21)
[2017-01-20] MEDS: Z GUARD REMEDY 2 OZ OINT TP PRN (16:21)
[2017-01-21] VITALS (53 sets, daily range): BP systolic 121–168; BP diastolic 74–101
--- NOTE | 2017-01-21 01:00 | NUR ---
CARDIOLOGY SPECIALIST - REC'D PT. ON DIPRIVAN GTT. AT 40 MCG/KG/MIN. AT 2300 - PT. WAS STIRRING AROUND & SBP'S HAVE BEEN IN THE 140'S-160'S. PT.REPOSITIONED Q 2 HRS & PRN, HOWEVER MIN. TACTILE STIM. GIVEN. PIV'S X 2 HAVE ALL PORTS PATENT TO FLUSH. MIV OF 0.45%NS INFUSING AT 50CC/HR & DIPRIVAN GTT. INFUSING WELL. NEWTON CATH TO GRAVITY W/GOOD UOP. NOVASOURCE AT 30CC/HR HAS NO RESIDUALS NOTED. VENT WEANING IN A.M.
[2017-01-21] MEDS: IV 1/2NS 1000 ML 1,000 ML IV PRN (02:40)
[2017-01-21] MEDS: PROPOFOL 100 ML IV PRN ×6 (02:40→21:35)
[2017-01-21] MEDS: IPRATROPIUM NEB FS 0.5 MG/2.5 ML AMPUL.NEB NEB SCH ×6 (03:25→23:18)
[2017-01-21] MEDS: ALBUTEROL HALF STRENGTH 1.25 MG/3 ML VIAL.NEB NEB SCH ×6 (03:25→23:18)
[2017-01-21 04:45] LABS: BASOPHILS % (AUTO) 0.1 % (0.0-2.0); EOSINOPHILS # (AUTO) 0.1 /CMM (0.0-0.7); EOSINOPHILS % (AUTO) 0.7 % (0.0-6.0); HEMATOCRIT 37 % (39-51); HEMOGLOBIN 12.3 g/dL (13.5-17.5); LYMPHOCYTES # (AUTO) 0.9 /CMM (0.8-4.8); LYMPHOCYTES % (AUTO) 8.8 % (20.0-44.0); MEAN CORPUSCULAR HEMOGLOBIN 30 PG (26.0-33.0); MEAN CORPUSCULAR HGB CONC 34 g/dl (31.0-36.0); MEAN CORPUSCULAR VOLUME 90 fL (80-96); MONOCYTES # (AUTO) 1.8 /CMM (0.1-1.30); MONOCYTES % (AUTO) 17.1 % (2.0-12.0); NEUTROPHILS # (AUTO) 7.8 /CMM (1.8-8.9); NEUTROPHILS % (AUTO) 73.3 % (43.0-81.0); PLATELET COUNT (AUTO) 285 /CMM (150-450); RDW COEFFICIENT OF VARIATION 14.7 (11.5-15.0); RED BLOOD CELL COUNT(AUTO) 4.09 MIL/uL (4.5-6.0); WHITE BLOOD COUNT (AUTO) 10.6 K/uL (4.3-11.0)
[2017-01-21 05:04] LABS: CALCIUM, SERUM 8.7 mg/dL (8.5-10.1); CREATININE 5.4 mg/dL (0.6-1.3)
[2017-01-21 05:18] LABS: EOSINOPHILS % (MANUAL) 3 % (0-4); LYMPHOCYTES % (MANUAL) 8 % (16-48); MONOCYTES % (MANUAL) 19 % (0-11.0); NEUTROPHILS % (MANUAL) 70 (42-76); PLATELET ESTIMATE ADEQUATE
[2017-01-21] MEDS: CALCIUM ACETATE 667 MG TABLET GT SCH ×3 (05:31→21:36)
[2017-01-21] MEDS: PIPERACILLIN /TAZOBACTAM 2.25 G in IV D5W 50 ML IV SCH ×3 (05:31→21:42)
[2017-01-21] MEDS: HEPARIN SODIUM, PORCINE 5000 UNITS/1 ML VIAL SQ SCH ×3 (05:32→21:41)
[2017-01-21] MEDS: ACETAMINOPHEN 650 MG/SUPP.RECT RC PRN (05:53)
[2017-01-21] MEDS ORDERED: hydrALAZINE HCL IV 20 MG VIAL ONE (05:59)
[2017-01-21] MEDS ORDERED: hydrALAZINE HCL IV 20 MG VIAL IV PRN (06:00)
--- NOTE | 2017-01-21 06:17 | NUR ---
SECOND MATE - PT'S 4:30 AM TEMP = 100.5. COOLING MEASURES STARTED. PT.IS HOT TOO TOUCH. FAN IS RUNNING, ICE PACKS TO BILAT. AXILLA PLACED ON PT. AND TYLENOL ONE SUPP. NC ADM. PT. WAS ADM. A COOL BATH AT 2AM. ORAL,VENT,ASTER,SKIN AND NGT CARE ADM. TUAN/MT FROM LAB PHONED WITH ABNORMAL NA++ RESULT OF #158. PT.HAS MIV OF 0.45%NS INFUSING AT 50 CC/HR VIA HERNANDEZ PUMP. TALKED W/ ON PHONE RE: SBP'S IN THE 160'S FOR MOST PART OF THE NIGHT. HYDRALAZINE ORDERED & 10MG IVP WAS ADM. AT 06:10 AM. NO OTHER CHANGES FROM PREVIOUS ASSESSMENTS. CONT. POC.
[2017-01-21] MEDS: LORAZEPAM INJ 2 MG/ML VIAL IV PRN (07:19)
--- NOTE | 2017-01-21 07:37 | NUR ---
INITIAL DATA WAREHOUSE ADMINISTRATOR NOTE RCVD PT SEDATED ON DIPRIVAN INTUBATED ETT 7.5 23 AT LIP. PT APPEARS TO BE AGITATED, TACHYPNEIC AND TACHYCARDIC 124 RIGHT NARE NG TUBE PLACEMENT VERIFIED BY AUSCULTATION RESIDUAL 100ML. TUBE FEEDING PAUSED. RESTRAINTS IN PLACE. CIRCULATION CHECK PERFORMED. PT REPOSITIONED. IV SITES C/D/I/PATENT. NO S/O INFILTRATION OR PHLEBITIS OBSERVED IVF INFUSING. WILL CONTINUE TO MONITOR PT FOR SAFETY AND COMFORT. CALL LIGHT WITHIN REACH. BED IN LOW AND LOCKED POSITION.
--- NOTE | 2017-01-21 07:57 | NUR ---
RT PT RECEIVED ORALLY INTUBATED WITH A 7.5 ETT SECURED AT 23CM AT THE LIP LINE ON THE VENT WITH NOTED SETTINGS. PT IS CURRENTLY SEDATED AT THIS TIME. VENT ALARMS ARE SET AND AUDIBLE WITH BVM BY BEDSIDE. DENTAL HYGIENE ADMINISTRATIVE ASSISTANT CUFF PRESSURE NOTED. VENT IS PLUGGED INTO RED OUTLET. SX SMALL THICK YELLOW SECRETIONS. NO RESPIRATORY DISTRESS NOTED AT THIS TIME, WILL CONTINUE TO MONITOR. Addendum: 01/21/17 at 1813 by BARB KEE RT Amended: Links added.
[2017-01-21] MEDS: ACIDOPHILUS/BULGARICUS 1 EACH TAB.CHEW PO SCH ×3 (08:40→16:54)
[2017-01-21] MEDS: PANTOPRAZOLE 40 MG VIAL IV SCH (08:40)
[2017-01-21] MEDS: MORPHINE SULFATE INJ 2 MG/ML DISP.SYRIN IV PRN ×2 (09:26→21:35)
[2017-01-21] MEDS ORDERED: IV SET PRIMARY PUMP SET 1 EA INFUS.SET MC ONE ×2 (09:43→20:59)
--- NOTE | 2017-01-21 10:11 | NUR ---
BRUSH FILLER HAND NOTE SEDATION VACATION ATTEMPTED PT BECAME TACHYPNEIC, TACHYCARDIC, HYPERTENSIVE, PT AGITATED. SEDATION WAS RESUMED. PT OPEN EYES, UNABLE TO FOLLOW COMMANDS. RT AT BEDSIDE INFORMED THAT PT NOT READY FOR WEANING THIS AM.
[2017-01-21] MEDS: IV D5W 1,000 ML IV PRN (10:33)
[2017-01-21] MEDS: CLONIDINE HCL 0.2MG/24H PTWK 1 EA PATCH TD SCH (11:42)
--- NOTE | 2017-01-21 11:49 | NUR ---
LAUNDERER HAND NOTE DR. ELMORE AND DR. SPIVEY IN UNIT INFORMED OF PT'S HIGH RESIDUAL, REGLAN ORDERED. IVF CHANGED TO D5W. WILL CONTINUE TO MONITOR PT.
[2017-01-21] MEDS: METOCLOPRAMIDE HCL 10 MG/2 ML VIAL IV SCH ×2 (12:01→21:37)
--- NOTE | 2017-01-21 12:41 | NUR ---
MEDICAID NURSE NOTE RESIDUAL AT NOON 110 TUBE FEEDING STOPPED, HOB ELEVATED. REGLAN ON BOARD. WILL CONTINUE TO MONITOR
--- NOTE | 2017-01-21 14:04 | NUR ---
NARRATIVE WRITER NOTE NO RESIDUAL OBSERVED TUBE FEEDING RE-STARTED. WILL CONTINUE TO MONITOR.
[2017-01-21 14:13] LABS: HEPATITIS A AB, IgM Negative (Negative); HEPATITIS B CORE AB, IgM Indeterminate (Negative); HEPATITIS C VIRUS AB <0.1 s/co ratio (0.0-0.9)
[2017-01-21] MEDS: RENAL NOVASOURCE 1,000 ML BOTTLE GT PRN (16:56)
--- NOTE | 2017-01-21 18:07 | NUR ---
MANAGER COMMUNITY RELATIONS NOTE PT CONTINUES TO BE SEDATED ON DIPRIVAN, SHOWING NO S/O DISTRESS OR PAIN. ST ON TELE MONITOR. TOLERATING ORDERED VENT SETTINGS. ETT 7.5 23 AT LIP. RIGHT NG TUBE PLACEMENT VERIFIED. NO RESIDUAL OBSERVED. NEWTON DRAINING CLOUDY, YELLOW URINE. BILATERAL SOFT WRIST RESTRAINTS ON. IV SITES C/D/I/PATENT. NO S/O INFILTRATION OR PHLEBITIS OBSERVED IVF INFUSING. PT'S CARE WILL BE ENDORSED TO RAT CULTURIST RN AT CHANGE OF SHIFT. BED IN LOW AND LOCKED POSITION. CALL LIGHT WITHIN REACH.
[2017-01-21] MEDS: LEVOFLOXACIN 500 MG /D5W 100ML 500 MG in PREMIX 1 EA IV SCH (21:38)
[2017-01-22] VITALS (55 sets, daily range): BP systolic 127–169; BP diastolic 42–111
[2017-01-22] MEDS: PROPOFOL 100 ML IV PRN ×7 (02:34→23:52)
[2017-01-22] MEDS: ALBUTEROL HALF STRENGTH 1.25 MG/3 ML VIAL.NEB NEB SCH ×5 (03:11→20:18)
[2017-01-22] MEDS: IPRATROPIUM NEB FS 0.5 MG/2.5 ML AMPUL.NEB NEB SCH ×5 (03:11→20:18)
[2017-01-22] MEDS: CALCIUM ACETATE 667 MG TABLET GT SCH ×3 (04:46→20:48)
[2017-01-22] MEDS: METOCLOPRAMIDE HCL 10 MG/2 ML VIAL IV SCH ×3 (04:46→20:48)
[2017-01-22] MEDS: PIPERACILLIN /TAZOBACTAM 2.25 G in IV D5W 50 ML IV SCH ×3 (04:47→20:53)
[2017-01-22] MEDS: HEPARIN SODIUM, PORCINE 5000 UNITS/1 ML VIAL SQ SCH ×3 (04:48→20:48)
[2017-01-22] MEDS: ACETAMINOPHEN 650 MG/SUPP.RECT RC PRN (04:49)
[2017-01-22 04:53] LABS: BASOPHILS % (AUTO) 0.3 % (0.0-2.0); EOSINOPHILS # (AUTO) 0.1 /CMM (0.0-0.7); EOSINOPHILS % (AUTO) 1.1 % (0.0-6.0); HEMATOCRIT 37 % (39-51); HEMOGLOBIN 12.4 g/dL (13.5-17.5); LYMPHOCYTES # (AUTO) 1.1 /CMM (0.8-4.8); LYMPHOCYTES % (AUTO) 11.5 % (20.0-44.0); MEAN CORPUSCULAR HEMOGLOBIN 30 PG (26.0-33.0); MEAN CORPUSCULAR HGB CONC 33 g/dl (31.0-36.0); MEAN CORPUSCULAR VOLUME 89 fL (80-96); MONOCYTES # (AUTO) 1.2 /CMM (0.1-1.30); MONOCYTES % (AUTO) 12.7 % (2.0-12.0); NEUTROPHILS # (AUTO) 7.3 /CMM (1.8-8.9); NEUTROPHILS % (AUTO) 74.4 % (43.0-81.0); PLATELET COUNT (AUTO) 317 /CMM (150-450); RDW COEFFICIENT OF VARIATION 15.3 (11.5-15.0); RED BLOOD CELL COUNT(AUTO) 4.19 MIL/uL (4.5-6.0); WHITE BLOOD COUNT (AUTO) 9.8 K/uL (4.3-11.0)
[2017-01-22 05:02] LABS: CALCIUM, SERUM 8.6 mg/dL (8.5-10.1); CREATININE 4.3 mg/dL (0.6-1.3); MAGNESIUM 1.8 mg/dL (1.8-2.4); PHOSPHORUS 5.1 mg/dL (2.5-4.9); POTASSIUM 3.8 mmol/L (3.5-5.1)
--- NOTE | 2017-01-22 06:48 | NUR ---
MORTAR CARRIER - PT. REMAINS VENTED & SEDATED ON DIPRIVAN GTT. AT 50 MCG/KG/MIN. SEDATION VACATION DONE IN BETWEEN BOTTLE CHANGES. COMP. BEDBATH ADM. AT 4AM, NO BM. AMAN PUT OUT 1,200 CC FOR THIS SHIFT. BILAT. SOFT WRIST RESTRAINTS REMAIN INTACT. LAB PHONED W/SODIUM LEVEL AT #159 DOCUMENTED. TYLENOL 650MG/SUPP. ADM. AT 04:50AM FOR TEMP AT 100.6 AX. PT.IS VERY HOT TO TOUCH. COOLING MEASURES ARE CONSTANT. MORPHINE 2MG SLOW IVP WAS ADM. AT START OF SHIFT FOR RESTLESSNESS. CONT.POC.
--- NOTE | 2017-01-22 07:36 | NUR ---
INITIAL ASSOCIATE PROFESSOR OF BIBLICAL STUDIES NOTE RCVD PT SEDATED ON DIPRIVAN, ST ON TELE MONITOR. TOLERATING ORDERED VENT SETTINGS ETT 7.5 23 AT LIP. RIGHT NG TUBE PLACEMENT VERIFIED BY AUSCULTATION. RESIDUAL OF 10ML OBSERVED. NEWTON DRAINING CLOUDY, YELLOW URINE. RESTRAINTS IN PLACE. CIRCULATION CHECKS DONE. IV SITES C/D/I/PATENT. NO S/O INFILTRATION OBSERVED IVF INFUSING. WILL CONTINUE TO MONITOR PT FOR SAFETY AND COMFORT. CALL LIGHT WITHIN REACH. BED IN LOW AND LOCKED POSITION. BED ALARM ON.
[2017-01-22] MEDS: ACIDOPHILUS/BULGARICUS 1 EACH TAB.CHEW PO SCH ×3 (08:02→17:10)
[2017-01-22] MEDS: PANTOPRAZOLE 40 MG VIAL IV SCH (08:02)
[2017-01-22] MEDS: IV D5W 1,000 ML IV PRN (08:03)
[2017-01-22 09:07] LABS: ABG OXYGEN SATURATION 89.5 % (92.0-98.5); ABG PCO2 32.2 mmHg (35.0-45.0); ABG PH 7.423 (7.350-7.450); ABG PO2 58.1 mmHg (75.0-100.0); ABG TOTAL HEMOGLOBIN 12.8 G/dL (13.5-18.0); AaDO2 190.1 mmHg; COHb 0.7 % (0.5-1.5); MetHb 1.1 % (0.0-1.5); O2Hb 87.9 % (94.0-97.0); PEEP,BG 5 cm H2O; SITE, ABG Left Radial; VT, ABG 650 mL
[2017-01-22] MEDS: MORPHINE SULFATE INJ 2 MG/ML DISP.SYRIN IV PRN ×2 (09:23→18:31)
--- NOTE | 2017-01-22 10:22 | NUR ---
TIE LAYER NOTE SEDATION VACATION ATTEMPTED. PT'S VITAL SIGNS INCREASED. PT UNABLE TO FOLLOW COMMANDS. SEDATION WAS RE-STARTED. DR. SPIVEY AT PT'S BEDSIDE EARLIER THIS AM. INFORMED OF PT'S TEMP 101 THIS AM AND Na TRENDING UP. WATER FLUSHES ORDERED. WILL CONTINUE TO MONITOR.
--- NOTE | 2017-01-22 11:31 | NUR ---
BOAT LOADER NOTE DR. ELMORE AND DR. WOODRUFF IN UNIT INFORMED OF PT'S 101 TEMP THIS AM. NO CX ORDERS GIVEN. TEMP DECREASED TO 98.1 AT 1000. WILL CONTINUE TO MONITOR PT.
[2017-01-22] MEDS: RENAL NOVASOURCE 1,000 ML BOTTLE GT PRN (17:10)
--- NOTE | 2017-01-22 18:17 | NUR ---
GEOSPATIAL PROGRAM MANAGEMENT OFFICER NOTE PT CONTINUES TO BE SEDATED ON DIPRIVAN. TOLERATING VENT SETTINGS ETT 7.5 23 AT LIP. RIGHT NG TUBE PLACEMENT VERIFIED BY AUSCULTATION. RESIDUAL OF 20ML OBSERVED. NEWTON CONTINUES TO DRAIN CLOUDY, YELLOW URINE. IV SITES IV SITES C/D/I/PATENT. NO S/O INFILTRATION OBSERVED IVF INFUSING. CALL LIGHT WITHIN REACH. BED IN LOW AND LOCKED POSITION. BED ALARM ON. PT'S CARE WILL BE ENDORSED TO CRUMB PACKER RN AT CHANGE OF SHIFT.
--- NOTE | 2017-01-22 18:39 | NUR ---
RV REPAIRER NOTE PT'S SATURATION 90-91% ON ORDERED VENT SETTINGS. FIO2 INCREASED TO 50% SATURATION NOW 93-94%. WILL CONTINUE TO MONITOR.
--- NOTE | 2017-01-22 20:00 | NUR ---
ICU/RN- PT IN BED SEDATED W/ BILAT UPPER EXT SOFT WRIST RESTRAINTS FOR SAFETY. ON MONITOR W/ ST - 100S. ORALLY INTUBATED W/ ETT 7.5/23, AC18 TV 650 FIO2 50% P 8. RESP EVEN AND UNLABORED. NO S/SX OF RESP DISTRESS NOTED. SL R W 18 G PATENT AND INTACT, W/ DIPRIVAN @ 50MCG/KG/MIN AND R AC 20 G W/ D5W @ 50 ML/HR. TOLERATING WELL. WILL TITRATE DIPRIVAN FOR SEDATION. RNGT IN [place] W/ NOVASOURCE @ 30ML/HR. AUSCULTATED FOR + PLACEMENT. RESIDUAL IS 40ML AT THIS TIME. NEWTON IN PLACE W/ YELLOW URINE W/ SEDIMENTS. HOB UP AT ALL TIMES. BED LOW AND IN LOCKED POSITION. WILL MONITOR PT ACCORDINGLY.
[2017-01-22] MEDS: LORAZEPAM INJ 2 MG/ML VIAL IV PRN (20:45)
--- NOTE | 2017-01-22 20:46 | NUR ---
ICU/RN- PT NOTED TO BE BUCKING THE VENT. PT SLIGHTLY WAKING UP/AGITATED. REPOSITIONED FOR COMFORT. DIPJOHNATHAN MinerAXED OUT AT 50 MCG/KG/MIN. WILL ADMINISTER ATIVAN 1 MG PRN FOR ANXIETY. TOLERATED. WELL. WILL MONITOR CHANGES IN BEHAVIOR.
[2017-01-22] MEDS ORDERED: IV SET PRIMARY PUMP SET 1 EA INFUS.SET MC ONE (23:45)
[2017-01-23] VITALS (51 sets, daily range): BP systolic 98–151; BP diastolic 55–94
[2017-01-23] MEDS: ALBUTEROL HALF STRENGTH 1.25 MG/3 ML VIAL.NEB NEB SCH ×7 (00:03→23:59)
[2017-01-23] MEDS: IPRATROPIUM NEB FS 0.5 MG/2.5 ML AMPUL.NEB NEB SCH ×7 (00:03→23:59)
[2017-01-23] MEDS: LORAZEPAM INJ 2 MG/ML VIAL IV PRN ×2 (03:18→13:35)
--- NOTE | 2017-01-23 03:18 | NUR ---
ICU/RN- PT NOTED TO BE WAKING UP AND AGITATED. REPOSITIONED FOR COMFORT. DIPRIVAN ALREADY MAXED OUT AT 50 MCG/KG/MIN. WILL ADMINISTER ATIVAN 1 MG PRN FOR ANXIETY. TOLERATED. WELL. WILL MONITOR CHANGES IN BEHAVIOR.
[2017-01-23] MEDS: PROPOFOL 100 ML IV PRN ×6 (04:43→23:22)
[2017-01-23 05:11] LABS: BASOPHILS % (AUTO) 0.1 % (0.0-2.0); EOSINOPHILS # (AUTO) 0.3 /CMM (0.0-0.7); HEMATOCRIT 35 % (39-51); HEMOGLOBIN 11.6 g/dL (13.5-17.5); LYMPHOCYTES # (AUTO) 1.6 /CMM (0.8-4.8); LYMPHOCYTES % (AUTO) 11.7 % (20.0-44.0); MEAN CORPUSCULAR HEMOGLOBIN 30 PG (26.0-33.0); MEAN CORPUSCULAR HGB CONC 33 g/dl (31.0-36.0); MEAN CORPUSCULAR VOLUME 89 fL (80-96); MONOCYTES # (AUTO) 1.2 /CMM (0.1-1.30); MONOCYTES % (AUTO) 9.3 % (2.0-12.0); NEUTROPHILS # (AUTO) 10.2 /CMM (1.8-8.9); NEUTROPHILS % (AUTO) 76.9 % (43.0-81.0); PLATELET COUNT (AUTO) 363 /CMM (150-450); RDW COEFFICIENT OF VARIATION 15.5 (11.5-15.0); RED BLOOD CELL COUNT(AUTO) 3.92 MIL/uL (4.5-6.0); WHITE BLOOD COUNT (AUTO) 13.3 K/uL (4.3-11.0)
[2017-01-23] MEDS ORDERED: IV SET PRIMARY PUMP SET 1 EA INFUS.SET MC ONE ×3 (05:15→19:41)
[2017-01-23 05:19] LABS: CALCIUM, SERUM 8.9 mg/dL (8.5-10.1); CREATININE 3.9 mg/dL (0.6-1.3); PHOSPHORUS 5.2 mg/dL (2.5-4.9); POTASSIUM 3.9 mmol/L (3.5-5.1)
[2017-01-23] MEDS: IV D5W 1,000 ML IV PRN (05:23)
[2017-01-23] MEDS: METOCLOPRAMIDE HCL 10 MG/2 ML VIAL IV SCH ×3 (05:24→20:06)
[2017-01-23] MEDS: CALCIUM ACETATE 667 MG TABLET GT SCH ×3 (05:24→20:06)
[2017-01-23] MEDS: PIPERACILLIN /TAZOBACTAM 2.25 G in IV D5W 50 ML IV SCH ×4 (05:27→23:25)
[2017-01-23 05:29] LABS: INR 1.04 (0.87-1.13); PROTHROMBIN TIME 11.1 SECS (9.5-12.7)
[2017-01-23] MEDS: HEPARIN SODIUM, PORCINE 5000 UNITS/1 ML VIAL SQ SCH ×2 (06:01→12:25)
--- NOTE | 2017-01-23 06:38 | NUR ---
ICU/RN- ALL NEEDS ATTENDED AND MET.NAD NOTED AT THIS TIME. WILL ENDORSE TO AM SHIFT FOR CONTINUATION OF CARE.
--- NOTE | 2017-01-23 08:00 | NUR ---
PT RECVD SEDATED ON 50MCG OF DIPRIVAN. VITALS STABLE AT THIS TIME. WILL DISCUSS WITH PLAN WITH DR. KACY Hill PLAN IF WEANING TRIAL WILL TAKE PLACE TODAY. WILL PERFORM SEDATION VACATION IF NO TRIAL TAKES PLACE.
[2017-01-23] MEDS: PANTOPRAZOLE 40 MG VIAL IV SCH (08:14)
[2017-01-23] MEDS: ACIDOPHILUS/BULGARICUS 1 EACH TAB.CHEW PO SCH ×3 (08:14→16:26)
[2017-01-23 09:27] LABS: ABG BASE EXCESS -3.8 mmol/L; ABG OXYGEN SATURATION 96.9 % (92.0-98.5); ABG PCO2 38.4 mmHg (35.0-45.0); ABG PO2 107.3 mmHg (75.0-100.0); ABG TOTAL HEMOGLOBIN 12.6 G/dL (13.5-18.0); COHb 0.1 % (0.5-1.5); MetHb 1.1 % (0.0-1.5); O2Hb 95.7 % (94.0-97.0); PEEP,BG 8 cm H2O; SITE, ABG Left Brachial; VT, ABG 650 mL
--- NOTE | 2017-01-23 09:43 | NUR ---
SEDATION VACATION PERFORMED. PT WAKES UP OPENS EYES, BUT DOES NOT TRACK. HE COUGHS FORCEFULLY CAUSING AIR TO ESCAPE THE SIDES OF THE ETT CUFF, PT BITING THE ETT AND BREATHING RATE IS UPWARDS OF 40-50s. PT OPENS EYES, DOES NOT TRACK, HAS A GAG AND CORNEAL REFLEXES, DOES NOT FOLLOW DIRECTIONS TO SQUEEZE HANDS. WILL CURRENTLY TITRATE DIPRIVAN UP FOR SEDATION.
[2017-01-23] MEDS: ACETAMINOPHEN 650 MG/SUPP.RECT RC PRN (15:22)
--- NOTE | 2017-01-23 23:58 | NUR ---
ICU/RN- PT AGITATED AND RESTLESS. CALMING MEASURES GIVEN. DIPRIVAN AT 50 MCG/KG/MIN. ATIVAN 1 MG GIVEN IVP PRN FOR ANXIETY. TOLERATED WELL. NO S/SX OF ADVERSE REACTION NOTED. WILL MONITOR FOR CHANGES IN BEHAVIOR.
[2017-01-24] VITALS (43 sets, daily range): BP systolic 103–152; BP diastolic 57–98
[2017-01-24] MEDS: IPRATROPIUM NEB FS 0.5 MG/2.5 ML AMPUL.NEB NEB SCH ×6 (03:09→23:16)
[2017-01-24] MEDS: ALBUTEROL HALF STRENGTH 1.25 MG/3 ML VIAL.NEB NEB SCH ×6 (03:09→23:16)
[2017-01-24] MEDS: PROPOFOL 100 ML IV PRN ×3 (03:34→16:13)
[2017-01-24] MEDS: CALCIUM ACETATE 667 MG TABLET GT SCH ×3 (04:11→20:25)
[2017-01-24] MEDS: IV D5W 1,000 ML IV PRN ×2 (04:11→23:20)
[2017-01-24] MEDS: METOCLOPRAMIDE HCL 10 MG/2 ML VIAL IV SCH ×3 (04:11→20:24)
[2017-01-24 04:40] LABS: BASOPHILS % (AUTO) 0.1 % (0.0-2.0); EOSINOPHILS # (AUTO) 0.2 /CMM (0.0-0.7); EOSINOPHILS % (AUTO) 1.8 % (0.0-6.0); HEMATOCRIT 32 % (39-51); HEMOGLOBIN 10.7 g/dL (13.5-17.5); LYMPHOCYTES # (AUTO) 1.3 /CMM (0.8-4.8); LYMPHOCYTES % (AUTO) 10.6 % (20.0-44.0); MEAN CORPUSCULAR HEMOGLOBIN 30 PG (26.0-33.0); MEAN CORPUSCULAR HGB CONC 34 g/dl (31.0-36.0); MEAN CORPUSCULAR VOLUME 88 fL (80-96); MONOCYTES # (AUTO) 0.9 /CMM (0.1-1.30); NEUTROPHILS # (AUTO) 10.2 /CMM (1.8-8.9); NEUTROPHILS % (AUTO) 80.5 % (43.0-81.0); PLATELET COUNT (AUTO) 404 /CMM (150-450); RDW COEFFICIENT OF VARIATION 15.1 (11.5-15.0); WHITE BLOOD COUNT (AUTO) 12.7 K/uL (4.3-11.0)
[2017-01-24 04:59] LABS: CALCIUM, SERUM 8.8 mg/dL (8.5-10.1); CREATININE 3.8 mg/dL (0.6-1.3); POTASSIUM 3.7 mmol/L (3.5-5.1)
[2017-01-24] MEDS: PIPERACILLIN /TAZOBACTAM 2.25 G in IV D5W 50 ML IV SCH ×4 (05:25→23:08)
--- NOTE | 2017-01-24 07:45 | NUR ---
Sedation Vacation 0745 Patient titrated off diprivan with minimal response (only facial grimace to painful stimuli) as baseline. Vitals signs stable, no distress. 0815 Patient remain unresponsive with minimal response. 0840 Patient started opening eyes, does not track but responsive/withdraws with pain to the extremities. 0850 Patient able to follow command: Able to tightly closed and open eyes when asked, moved lower extremities and hand human resources assistant manager. Restless and gags with attempts to gag out ETT. Diprivan restarted. [address] Delgado ([facility]) to keep patient off Diprivan and to give Ativan PRN for restlessness.
[2017-01-24] MEDS: ACIDOPHILUS/BULGARICUS 1 EACH TAB.CHEW PO SCH ×3 (08:39→16:13)
[2017-01-24] MEDS: PANTOPRAZOLE 40 MG VIAL IV SCH (08:39)
[2017-01-24] MEDS: LORAZEPAM INJ 2 MG/ML VIAL IV PRN ×4 (11:21→23:25)
--- NOTE | 2017-01-24 11:30 | NUR ---
PT PLACED ON WEANING MODE PER MD ORDER. AT THIS TIME PT UNABLE TO TOLERATE CHANGES DUE TO ELEVATED WORK OF BREATHING.
--- NOTE | 2017-01-24 11:30 | NUR ---
Weaning Trial Patient off sedation since this AM. Vent change to SIMV mode but patient unable to tolerated. RR >50's.
[2017-01-24] MEDS ORDERED: IV SET PRIMARY PUMP SET 1 EA INFUS.SET MC ONE ×2 (15:58→21:47)
--- NOTE | 2017-01-24 19:18 | NUR ---
ICU/RN: PT NOTED TO BE RESTLESS, ANXIOUS, GAGGING ON ETT. ADMINISTERED ATIVAN PRN, EFFECTIVE. PT RESTING COMFORTABLY IN BED. CARE ENDORSED TO PM RN FOR TIFFANY.
[2017-01-24] MEDS: MORPHINE SULFATE INJ 2 MG/ML DISP.SYRIN IV PRN ×2 (20:25→22:36)
--- NOTE | 2017-01-24 20:25 | NUR ---
SWITCHBOARD AND CONTROL ROOM OPERATOR: PT IS SHOWING SIGNS OF PAIN .FREQUENT FACIAL GRIMACING NOTED AND PT IS RESTLESS AFTER REPOSITIONING. PRN MORPHINE GIVEN . WILL CONT TO MONITOR.
--- NOTE | 2017-01-24 21:30 | NUR ---
WAREHOUSE OPERATIONS ASSOCIATE: PT IS AWAKE AND AGITATED. PT IS RESTLESS AND MOVING HEAD AND BODY BACK AND FORTH WHILE TRYING TO PULL OUT ETT. PT WAS ABLE TO DISCONNECT TUBING. RECONNECTED TUBING QUICKLY. REPOSITIONED PT AND SECURED BILATERAL WRIST RESTRAINTS. WILL CONTINUE TO MONITOR CLOSELY.
--- NOTE | 2017-01-24 22:36 | NUR ---
COUTURIERE: PT NODS "YES" WHEN ASKED IF HE HAS PAIN. PT IS SHOWING SIGNS OF PAIN . FREQUENT FACIAL GRIMACING NOTED AND PT IS RESTLESS AND KICKING . PRN MORPHINE GIVEN . WILL CONT TO MONITOR.
[2017-01-24] MEDS: RENAL NOVASOURCE 1,000 ML BOTTLE GT PRN (23:20)
--- NOTE | 2017-01-24 23:34 | NUR ---
BACK HANGER : ATTEMPTED TO DO ORAL CARE BBUT PT REFUSED AND WAS RESTLESS AND WOULD NOT STOP MOVING HIS HEAD BACK AND FORTH. PT IS RESTLESS AND TRYING TO REMOVE ETT AGAIN . PRN ATIVAN GIVEN.
[2017-01-25] VITALS (40 sets, daily range): BP systolic 119–155; BP diastolic 69–99
[2017-01-25] MEDS: MORPHINE SULFATE INJ 2 MG/ML DISP.SYRIN IV PRN ×3 (00:59→12:59)
--- NOTE | 2017-01-25 00:59 | NUR ---
SONAR TECHNICIAN: PT IS SHOWING SIGNS OF PAIN AND NODS YES WHEN ASKED IF HES IN PAIN. FREQUENT FACIAL GRIMACING NOTED AND PT IS RESTLESS AND KICKING . PRN MORPHINE GIVEN . WILL CONT TO MONITOR.
[2017-01-25] MEDS: ALBUTEROL HALF STRENGTH 1.25 MG/3 ML VIAL.NEB NEB SCH ×5 (03:41→19:51)
[2017-01-25] MEDS: IPRATROPIUM NEB FS 0.5 MG/2.5 ML AMPUL.NEB NEB SCH ×5 (03:41→19:51)
[2017-01-25] MEDS: LORAZEPAM INJ 2 MG/ML VIAL IV PRN ×2 (03:47→12:59)
[2017-01-25 04:59] LABS: BASOPHILS % (AUTO) 0.1 % (0.0-2.0); EOSINOPHILS # (AUTO) 0.2 /CMM (0.0-0.7); EOSINOPHILS % (AUTO) 1.7 % (0.0-6.0); HEMATOCRIT 34 % (39-51); HEMOGLOBIN 11.1 g/dL (13.5-17.5); LYMPHOCYTES # (AUTO) 1.1 /CMM (0.8-4.8); LYMPHOCYTES % (AUTO) 8.4 % (20.0-44.0); MEAN CORPUSCULAR HEMOGLOBIN 29 PG (26.0-33.0); MEAN CORPUSCULAR HGB CONC 33 g/dl (31.0-36.0); MEAN CORPUSCULAR VOLUME 89 fL (80-96); MONOCYTES # (AUTO) 0.8 /CMM (0.1-1.30); MONOCYTES % (AUTO) 6.1 % (2.0-12.0); NEUTROPHILS # (AUTO) 10.8 /CMM (1.8-8.9); NEUTROPHILS % (AUTO) 83.7 % (43.0-81.0); PLATELET COUNT (AUTO) 470 /CMM (150-450); RDW COEFFICIENT OF VARIATION 15.3 (11.5-15.0); RED BLOOD CELL COUNT(AUTO) 3.81 MIL/uL (4.5-6.0); WHITE BLOOD COUNT (AUTO) 12.9 K/uL (4.3-11.0)
[2017-01-25 05:15] LABS: CALCIUM, SERUM 8.9 mg/dL (8.5-10.1); CREATININE 3.2 mg/dL (0.6-1.3); POTASSIUM 3.4 mmol/L (3.5-5.1)
[2017-01-25] MEDS: METOCLOPRAMIDE HCL 10 MG/2 ML VIAL IV SCH ×3 (05:18→20:56)
[2017-01-25] MEDS: PIPERACILLIN /TAZOBACTAM 2.25 G in IV D5W 50 ML IV SCH ×4 (05:18→23:47)
[2017-01-25] MEDS: CALCIUM ACETATE 667 MG TABLET GT SCH ×3 (05:18→20:56)
[2017-01-25] MEDS: ACIDOPHILUS/BULGARICUS 1 EACH TAB.CHEW PO SCH ×3 (08:28→17:17)
[2017-01-25] MEDS: PANTOPRAZOLE 40 MG VIAL IV SCH (08:28)
[2017-01-25] MEDS ORDERED: POTASSIUM CHLORIDE 20 MEQ POWDER PACKET GT ONE (08:30)
--- NOTE | 2017-01-25 09:20 | NUR ---
CABLE WIRER NOTE 0720: Received patient awake, responds to name only at this time. With ETT to vent, tolerated settings well. No respiratory distress noted at this time. No S/S any discomfort noted at this time. With PIVs intact. On IVF infusing well. With varela cath intact, noted with clear yellow urine from BSD. With NGT intact, noted with 50mL residuals, kept HOB elevated. On precaution for CDiff, maintained and observed. CDiff result still pending. 0815: S/E by Dr. Morgan, with order of labs in am, KCl replacement and increased free water flush. 0900: S/E by Dr. Delgado, patient awake, follows very sipmle commands, with order to place on SIMV mode rate 4, 15 and 5, will monitor. 0920: Placed patient back on AC mode for tachypnea 35, Dr. Delgado in the unit aware.
[2017-01-25] MEDS ORDERED: IV SET PRIMARY PUMP SET 1 EA INFUS.SET MC ONE (15:02)
[2017-01-25] MEDS: PROPOFOL 100 ML IV PRN ×2 (15:07→20:53)
[2017-01-25] MEDS: ACETAMINOPHEN 650 MG/SUPP.RECT RC PRN (20:56)
--- NOTE | 2017-01-25 21:00 | NUR ---
TEMP 101.5 PT GIVEN TYLENOL SUPPOSITORY, COOLING MEASURES IMPLEMENTED, ICE BATH GIVEN, FAN ON, WILL REASSESS
[2017-01-25] MEDS: IV D5W 1,000 ML IV PRN (21:59)
[2017-01-26] VITALS (47 sets, daily range): BP systolic 108–165; BP diastolic 65–113
[2017-01-26] MEDS: ALBUTEROL HALF STRENGTH 1.25 MG/3 ML VIAL.NEB NEB SCH ×7 (00:05→22:56)
[2017-01-26] MEDS: IPRATROPIUM NEB FS 0.5 MG/2.5 ML AMPUL.NEB NEB SCH ×7 (00:05→22:56)
[2017-01-26] MEDS: PROPOFOL 100 ML IV PRN ×5 (01:59→20:51)
[2017-01-26 04:59] LABS: BASOPHILS % (AUTO) 0.2 % (0.0-2.0); EOSINOPHILS # (AUTO) 0.2 /CMM (0.0-0.7); EOSINOPHILS % (AUTO) 1.8 % (0.0-6.0); HEMATOCRIT 33 % (39-51); HEMOGLOBIN 11.1 g/dL (13.5-17.5); LYMPHOCYTES # (AUTO) 1.6 /CMM (0.8-4.8); LYMPHOCYTES % (AUTO) 13.1 % (20.0-44.0); MEAN CORPUSCULAR HEMOGLOBIN 30 PG (26.0-33.0); MEAN CORPUSCULAR HGB CONC 34 g/dl (31.0-36.0); MEAN CORPUSCULAR VOLUME 89 fL (80-96); MONOCYTES # (AUTO) 0.8 /CMM (0.1-1.30); MONOCYTES % (AUTO) 6.7 % (2.0-12.0); NEUTROPHILS # (AUTO) 9.6 /CMM (1.8-8.9); NEUTROPHILS % (AUTO) 78.2 % (43.0-81.0); PLATELET COUNT (AUTO) 519 /CMM (150-450); RDW COEFFICIENT OF VARIATION 15.3 (11.5-15.0); RED BLOOD CELL COUNT(AUTO) 3.67 MIL/uL (4.5-6.0); WHITE BLOOD COUNT (AUTO) 12.2 K/uL (4.3-11.0)
[2017-01-26] MEDS: METOCLOPRAMIDE HCL 10 MG/2 ML VIAL IV SCH ×3 (05:13→21:47)
[2017-01-26] MEDS: PIPERACILLIN /TAZOBACTAM 2.25 G in IV D5W 50 ML IV SCH ×4 (05:13→23:25)
[2017-01-26] MEDS: CALCIUM ACETATE 667 MG TABLET GT SCH (05:13)
[2017-01-26 05:14] LABS: CALCIUM, SERUM 8.9 mg/dL (8.5-10.1); CREATININE 2.9 mg/dL (0.6-1.3); MAGNESIUM 2.2 mg/dL (1.8-2.4); PHOSPHORUS 4.2 mg/dL (2.5-4.9); POTASSIUM 3.4 mmol/L (3.5-5.1)
[2017-01-26] MEDS: RENAL NOVASOURCE 1,000 ML BOTTLE GT PRN (06:25)
--- NOTE | 2017-01-26 07:36 | NUR ---
INITIAL GASOLINE ENGINE ASSEMBLER NOTE RCVD PT SEDATED, SR ON TELE, INTUBATED ETT 7.5 23 AT LIP TOLERATING ORDERED VENT SETTINGS WELL. RIGHT NG TUBE PLACEMENT VERIFIED BY AUSCULTATION. 10ML RESIDUAL OBSERVED. NEWTON IN PLACE DRAINING CLOUDY, YELLOW URINE. RESTRAINTS IN PLACE. CIRCULATION CHECKS DONE. IV SITES C/D/I/PATENT. NO S/O INFILTRATION OR PHLEBITIS OBSERVED. WILL CONTINUE TO MONITOR FOR SAFETY AND COMFORT. CALL LIGHT WITHIN REACH. BED IN LOW AND LOCKED POSITION. BED ALARM ON.
[2017-01-26] MEDS: ACIDOPHILUS/BULGARICUS 1 EACH TAB.CHEW PO SCH ×3 (08:11→17:13)
[2017-01-26] MEDS: PANTOPRAZOLE 40 MG VIAL IV SCH (08:11)
--- NOTE | 2017-01-26 09:17 | NUR ---
PT PLACED ON SIMV MODE PER DR. WOODRUFF. DR. WOODRUFF AT BEDSIDE.PT IS VERY ANXIOUS AND TACHYPNEIC YET DR. WOODRUFF FEELS PT WILL TOLERATE WEANING, PT IS MORE ANXIOUS THAN IN DISTRESS. ABG TO BE DONE. VENT PLUGGED INTO RED OUTLET. AMBU BAG AT HOB. ETT 7.5 AT 23CM AT THE LIP. Addendum: 01/26/17 at 0921 by MAURI COOPER RT Amended: Links added.
--- NOTE | 2017-01-26 09:19 | NUR ---
SENIOR CYTOGENETIC TECHNOLOGIST NOTE SEDATION VACATION PERFORMED. PT RESPONDS TO NAME, ABLE TO FOLLOW SIMPLE COMMANDS THOUGH APPEARS TO HAVE SEVERE WEAKNESS OVER BUE AND BLE. PT WAS ORIENTED TO PLACE, SITUATION AND TIME. PT APPEARS CALM. HE WAS INSTRUCTED TO REMAIN CALM FOR DR. WOODRUFF TO COME AND ASSESS HIM TO TRY TO WEAN HIM OFF VENTILATOR TODAY. WILL CONTINUE TO MONITOR.
[2017-01-26] MEDS ORDERED: POTASSIUM CHLORIDE 20 MEQ POWDER PACKET GT ONE (09:30)
--- NOTE | 2017-01-26 10:24 | NUR ---
SERVER SUPPORT TECHNICIAN NOTE PT PLACED BACK ON AC MODE BY RT. PT UNABLE TO TOLERATING WEANING. PT BECAME VERY AGITATED, TACHYPNEIC, TACHYCARDIC, BP ELEVATED. NG TUBE PULLED OUT BY PT'S COUGH MOVEMENT. NG TUBE PUSHED BACK IN PLACEMENT VERIFIED BY AUSCULTATION AND SECOND RN AT BEDSIDE. GREEN COLORED GASTRIC DRAINAGE OBSERVED. TUBE FEEDING RESUMED.
[2017-01-26 10:37] LABS: ABG BASE EXCESS -2.7 mmol/L; ABG OXYGEN SATURATION 96.3 % (92.0-98.5); ABG PCO2 49.4 mmHg (35.0-45.0); ABG PH 7.304 (7.350-7.450); ABG PO2 100.6 mmHg (75.0-100.0); ABG TOTAL HEMOGLOBIN 12.3 G/dL (13.5-18.0); AaDO2 200.3 mmHg; COHb 0.8 % (0.5-1.5); MetHb 0.9 % (0.0-1.5); O2Hb 94.7 % (94.0-97.0); PEEP,BG 5 cm H2O; SITE, ABG Right Radial
--- NOTE | 2017-01-26 11:23 | NUR ---
Pt. continues to be intubated. SW to assess pt. once pt. is extubated, alert and oriented.
--- NOTE | 2017-01-26 11:55 | NUR ---
ON AIR ANNOUNCER NOTE PT APPEARS CALM, TOLERATING ORDERED VENT SETTINGS. VITAL SIGNS WNL. WILL CONTINUE TO MONITOR.
--- NOTE | 2017-01-26 16:12 | NUR ---
RENTAL REPRESENTATIVE NOTE COOLING MEASURES STARTED PT'S TEMP 100.0 WILL CONTINUE TO MONITOR.
[2017-01-26] MEDS: IV D5W 1,000 ML IV PRN (16:56)
--- NOTE | 2017-01-26 18:00 | NUR ---
PRIVATE SECURITY GUARD NOTE TEMP RE-CHECKED 100.6 ORALLY. TYLENOL SUPP ADMINISTERED. WILL CONTINUE TO MONITOR.
[2017-01-26] MEDS: ACETAMINOPHEN 650 MG/SUPP.RECT RC PRN (18:19)
[2017-01-26] MEDS: Z GUARD REMEDY 2 OZ OINT TP PRN (18:29)
--- NOTE | 2017-01-26 18:35 | NUR ---
CLIENT TECHNICAL PROFESSIONAL NOTE PT CONTINUES TO BE SEDATED, ETT 7.5 23 AT LIP. SHOWING NO S/O DISTRESS OR PAIN. SR ON TELE. TOLERATING ORDERED VENT SETTINGS AND TUBE FEEDING RATE. 20 ML RESIDUAL. IV SITES REMAIN C/D/I/PATENT. NO S/O INFILTRATION OR PHLEBITIS OBSERVED. PT'S CARE WILL BE ENDORSED TO BLUEPRINT DEVELOPER RN AT CHANGE OF SHIFT. BED IN LOW AND LOCKED POSITION. CALL LIGHT WITHIN REACH.
--- NOTE | 2017-01-26 19:30 | NUR ---
SUPERVISOR OFFSET PLATE PREPARATION: PT RECEIVED INTUBATED WT VENT SETTINGS ORDERED. NO ACUTE DISTRESS. NO EVIDENCE OF DISCOMFORT. AFEBRILE AT THIS TIME. SB TO SR ON INTELLIGENCE INTERN FOR HR IN HIGH 50s TO LOW 60s. SEDATED ON DIPRIVAN AT 50MCG/KG/MIN. BILAT. SOFT WRIST RESTRAINTS IN PLACE FOR EPISODE OF TRYING TO REACH TUBINGS. NOTED WT GOOD CIRCULATION AND NO SKIN BREAKDOWN WHEN RESTRAINTS WERE RELEASED AND CHECKED. NGT VERIFIED PLACEMENT AND TOLERATING FEEDING WT 5CC RESIDUAL. CONTINUE ON D5W AT 50ML/HR WT NO S/S OF INFILTRATION ON IV SITE. F/C PATENT AND INTACT DRAINING YELLOW URINE TO GRAVITY. HOB KEPT ELEVATED. SAFETY PRECAUTION NOTED AT ALL TIMES.
[2017-01-26] MEDS: HEPARIN SODIUM, PORCINE 5000 UNITS/1 ML VIAL SQ SCH (21:47)
[2017-01-26] MEDS ORDERED: IV SET PRIMARY PUMP SET 1 EA INFUS.SET MC ONE (23:02)
[2017-01-27] VITALS (37 sets, daily range): BP systolic 111–149; BP diastolic 47–91
[2017-01-27] MEDS: PROPOFOL 100 ML IV PRN ×6 (01:23→20:54)
[2017-01-27] MEDS: IPRATROPIUM NEB FS 0.5 MG/2.5 ML AMPUL.NEB NEB SCH ×6 (03:57→22:31)
[2017-01-27] MEDS: ALBUTEROL HALF STRENGTH 1.25 MG/3 ML VIAL.NEB NEB SCH ×6 (03:57→22:31)
--- NOTE | 2017-01-27 04:30 | NUR ---
DIECAST MACHINE OPERATOR: FI02 DECREASED TO 40%. HAD GOOD 02 SATURATION THROUGHOUT THE SHIFT. BED BATH GIVEN AND TOLERATED WELL.
[2017-01-27 04:54] LABS: BASOPHILS % (AUTO) 0.2 % (0.0-2.0); EOSINOPHILS # (AUTO) 0.2 /CMM (0.0-0.7); EOSINOPHILS % (AUTO) 2.1 % (0.0-6.0); HEMATOCRIT 32 % (39-51); HEMOGLOBIN 10.6 g/dL (13.5-17.5); LYMPHOCYTES # (AUTO) 1.5 /CMM (0.8-4.8); LYMPHOCYTES % (AUTO) 12.7 % (20.0-44.0); MEAN CORPUSCULAR HEMOGLOBIN 30 PG (26.0-33.0); MEAN CORPUSCULAR HGB CONC 34 g/dl (31.0-36.0); MEAN CORPUSCULAR VOLUME 88 fL (80-96); MONOCYTES # (AUTO) 0.8 /CMM (0.1-1.30); MONOCYTES % (AUTO) 6.8 % (2.0-12.0); NEUTROPHILS # (AUTO) 9.3 /CMM (1.8-8.9); NEUTROPHILS % (AUTO) 78.2 % (43.0-81.0); PLATELET COUNT (AUTO) 568 /CMM (150-450); RDW COEFFICIENT OF VARIATION 14.5 (11.5-15.0); RED BLOOD CELL COUNT(AUTO) 3.56 MIL/uL (4.5-6.0); WHITE BLOOD COUNT (AUTO) 11.8 K/uL (4.3-11.0)
[2017-01-27] MEDS ORDERED: IV SET PRIMARY PUMP SET 1 EA INFUS.SET MC ONE ×2 (04:56→08:08)
[2017-01-27] MEDS ORDERED: SECONDARY IV SET 1 EA INFUS.SET MC ONE (04:56)
[2017-01-27] MEDS: METOCLOPRAMIDE HCL 10 MG/2 ML VIAL IV SCH ×3 (05:05→21:00)
[2017-01-27] MEDS: PIPERACILLIN /TAZOBACTAM 2.25 G in IV D5W 50 ML IV SCH ×3 (05:08→17:04)
[2017-01-27 05:18] LABS: CALCIUM, SERUM 8.7 mg/dL (8.5-10.1); CREATININE 2.5 mg/dL (0.6-1.3); PHOSPHORUS 4.3 mg/dL (2.5-4.9); POTASSIUM 3.4 mmol/L (3.5-5.1)
[2017-01-27] MEDS: RENAL NOVASOURCE 1,000 ML BOTTLE GT PRN (05:18)
--- NOTE | 2017-01-27 06:20 | NUR ---
PUBLICATION DISTRIBUTOR: CONTINUE COOLING MEASURES FOR TEMP=99.4. REMAINED SEDATED ON DIPRIVAN AT 50MCG/KG/MIN. SB-SR ON MONITOR. TOLERATING NGT FEEDING WT 10CC RESIDUAL AT THIS TIME. SAFETY PRECAUTION NOTED.
[2017-01-27] MEDS: LORAZEPAM INJ 2 MG/ML VIAL IV PRN (06:42)
--- NOTE | 2017-01-27 06:45 | NUR ---
DRY TALC RACKER: ATIVAN GIVEN ORDERED DUE TO RESTLESSNESS MANIFESTED BY KICKING OF LEGS AND TRYING TO GET UP. WILL CONTINUE TO MONITOR EFFECTIVITY.
--- NOTE | 2017-01-27 07:30 | NUR ---
ICU/RN: PT RECEIVED, INTUBATED, MILDLY SEDATED, AWAKENS EASILY WITH TOUCH ON 50 MCG/MIN OF DIPRIVAN, WITH STRONG GAG AND COUGH REFLEX. PERIODS OF BRADYCARDIA NOTED S/P ATIVAN ADMINISTRATION, ASYMPTOMATIC. R NARE NGT AUSCULTATED, + PLACEMENT, 10 CC RESIDUAL NOTED. DTI ON TIP OF NOSE NOTED, AWAITNING WOUND CONSULT. REPOSITIONED TO PREVENT SKIN BREAKDOWN. IVF INFUSING WELL. FC DRAINING WELL TO GRAVITY. WILL CONT TO MONITOR PT STATUS.
--- NOTE | 2017-01-27 07:49 | NUR ---
WOUND CARE CONSULT PATIENT SEEN AND SKIN INTEGRITY ASSESSMENT DONE. PLEASE SEE CARDIOVASCULAR TECH ASSESSMENT IN PCS FOR TODAY ALONG WITH ALL RECOMMENDATIONS. TREATMENT PLAN DISCUSSED WITH MD AND MD IN AGREEMENT. ALL DISCUSSED WITH NURSING STAFF AT THE BEDSIDE. CONTINUE ALL SKIN MANAGEMENT AND PRESSURE ULCER PREVENTION MEASURE PER CURRENT PLAN OF CARE. 1ST STEP LOW AIRLOSS MATTRESS IN USE. Z GUARD IN USE FOR MOISTURE MANAGEMENT. Addendum: 01/27/17 at 0751 by HEBERT AGUILAR WNDNU Amended: Links added.
--- NOTE | 2017-01-27 08:17 | NUR ---
ICU/RN: POST-SEDATION VACATION - PT RESTLESS, KICKS LEGS, GAGGING, COUGHING AND BITING ON TUBE. ABLE TO FOLLOW ONLY SOME COMMANDS D/T ANXIETY. WITH PURPOSEFUL MOVEMENT OF ALL EXTREMITIES. PLACED BACK ON SEDATION FOR COMFORT AND SAFETY.
[2017-01-27] MEDS: PANTOPRAZOLE 40 MG VIAL IV SCH (08:18)
[2017-01-27] MEDS: ACIDOPHILUS/BULGARICUS 1 EACH TAB.CHEW PO SCH ×3 (08:18→16:32)
[2017-01-27] MEDS: NEOMY SULF/BACITRAC ZN/POLY 15 GM TUBE TP SCH (08:18)
[2017-01-27] MEDS: HEPARIN SODIUM, PORCINE 5000 UNITS/1 ML VIAL SQ SCH ×2 (08:19→21:05)
[2017-01-27] MEDS: Z GUARD REMEDY 2 OZ OINT TP PRN (08:20)
--- NOTE | 2017-01-27 08:45 | NUR ---
ICU/RN: DR WOODRUFF ROUNDS; INFORMED OF LOW GRADE TEMP; MINIMAL SECRETIONS FROM ETT. PER MD, NO WEANING TODAY. WILL ASSESS NEED TOMORROW.
[2017-01-27] MEDS ORDERED: POTASSIUM CHLORIDE 20 MEQ POWDER PACKET GT ONE (09:00)
[2017-01-27] MEDS: IV D5W 1,000 ML IV PRN (12:54)
--- NOTE | 2017-01-27 15:00 | NUR ---
ICU/RN: BED BATH RENDERED; WOUND CARE PROVIDED. PT TOLERATED WELL. WILL CONT TO MONITOR PT
--- NOTE | 2017-01-27 16:00 | NUR ---
ICU/RN: DR TAYLOR AT THE BEDSIDE; UPDATED ON PT STATUS. NOTIFIED OF PERIODS OF SINUS BRADYCARDIA IN 40'S; PER MD OK TO CONTINUE CLONIDINE PATCH AND CURRENT MEDS; CONTINUE CURRENT MONITORING.
--- NOTE | 2017-01-27 17:15 | NUR ---
ICU/RN: PT TRANSFERRED TO [facility] IN STABLE CONDITION ACCOMPANIED BY RN AND INSIDE SALES ACCOUNT REPRESENTATIVE, ALL BELONGINGS ACCOUNTED FOR, VERIFIED WITH DAUGHTER MARCOS PRIOR TO TRANSFER. CARE ENDORSED TO MANUEL DWYER. Addendum: 01/27/17 at 1917 by ANGIE ROLDAN RN WRONG ENTRY
--- NOTE | 2017-01-27 19:16 | NUR ---
ICU/RN: PT COMFORTABLE IN BED, NO DISTRESS NOTED, AIRWAY CLEARED OF SECRETIONS. IVF INFUSING WELL. FC DRAINING WELL TO GRAVITY. CARE ENDORSED TO PM RN FOR TIFFANY.
--- NOTE | 2017-01-27 19:40 | NUR ---
STRIPPING SHOVEL OILER. INITIAL ASSESSMENT. RECEIVED THE PT REST ON THE BED. ORALLY INTUBATED. SEDATED WITH DIPRIVAN. ETT #7.5,LIP 23CMS,AC 18,TV 650,ZYB458%, PEEP 5. SAT 98%. AURIST SHOWING NSR. IV RT FA 20G IVF D5W 50 ML/H, DIPRIVAN 50MCG/KG/MIN.RT NARE NGT INTACT. NOVA SOURCE 30ML/H.HOB ELEVATED. BRIAN SOFT WRIST RESTRAINT CHECKED AND RELEASED. NO INJURY OR REDNESS NOTED. FC PATENT. URINE DRAINING. TURN AND REPOSITION Q2H. WILL CONTINUE TO MONITOR VITALS.
[2017-01-27] MEDS ORDERED: IV NS 0.9% 250 ML IV ONE (20:55)
[2017-01-28] VITALS (35 sets, daily range): BP systolic 108–154; BP diastolic 35–100
[2017-01-28] MEDS: PIPERACILLIN /TAZOBACTAM 2.25 G in IV D5W 50 ML IV SCH ×5 (00:18→23:49)
[2017-01-28] MEDS: PROPOFOL 100 ML IV PRN ×6 (01:23→23:49)
[2017-01-28] MEDS: RENAL NOVASOURCE 1,000 ML BOTTLE GT PRN (02:43)
[2017-01-28] MEDS: IV D5W 1,000 ML IV PRN (02:44)
--- NOTE | 2017-01-28 02:51 | NUR ---
ASSISTANT BRANCH MANAGER. AM CARE, ORAL CARE, BED BATH GIVEN. LINEN CHANGED. REMAINING SAME VENT SETTING TOLERATED WELL. SAT 99%. NO ACUTE DISTRESS NOTED. ELECTRIC RANGE ASSEMBLER SHOWING NSR. IV RT HAND IVF D5W 50 ML/H, DIPRIVAN 50 MCG/KG/MIN.AFEBRILE. BRIAN SOFT WRIST RESTRAINT CHECKED AND RELEASED. NO INJURY OR REDNESS NOTED, FC PATENT. URINE DRAINING. TURN AND REPOSITION Q2H. HOB ELEVATED. NGT FEEDING NOVA SOURCE 30ML/H. WILL CONTINUE TO MONITOR VITALS.
[2017-01-28] MEDS: ALBUTEROL HALF STRENGTH 1.25 MG/3 ML VIAL.NEB NEB SCH ×6 (03:10→23:34)
[2017-01-28] MEDS: IPRATROPIUM NEB FS 0.5 MG/2.5 ML AMPUL.NEB NEB SCH ×6 (03:10→23:34)
[2017-01-28 05:26] LABS: BASOPHILS % (AUTO) 0.2 % (0.0-2.0); EOSINOPHILS # (AUTO) 0.3 /CMM (0.0-0.7); EOSINOPHILS % (AUTO) 2.7 % (0.0-6.0); HEMATOCRIT 29 % (39-51); HEMOGLOBIN 9.8 g/dL (13.5-17.5); LYMPHOCYTES # (AUTO) 2.3 /CMM (0.8-4.8); LYMPHOCYTES % (AUTO) 23.2 % (20.0-44.0); MEAN CORPUSCULAR HEMOGLOBIN 30 PG (26.0-33.0); MEAN CORPUSCULAR HGB CONC 34 g/dl (31.0-36.0); MEAN CORPUSCULAR VOLUME 88 fL (80-96); MONOCYTES # (AUTO) 0.9 /CMM (0.1-1.30); MONOCYTES % (AUTO) 8.6 % (2.0-12.0); NEUTROPHILS # (AUTO) 6.5 /CMM (1.8-8.9); NEUTROPHILS % (AUTO) 65.3 % (43.0-81.0); PLATELET COUNT (AUTO) 669 /CMM (150-450); RDW COEFFICIENT OF VARIATION 14.8 (11.5-15.0); RED BLOOD CELL COUNT(AUTO) 3.28 MIL/uL (4.5-6.0); WHITE BLOOD COUNT (AUTO) 9.9 K/uL (4.3-11.0)
[2017-01-28 05:41] LABS: CREATININE 2.3 mg/dL (0.6-1.3); PHOSPHORUS 4.4 mg/dL (2.5-4.9); POTASSIUM 3.3 mmol/L (3.5-5.1)
[2017-01-28] MEDS: METOCLOPRAMIDE HCL 10 MG/2 ML VIAL IV SCH ×3 (05:52→21:08)
[2017-01-28] MEDS: NEOMY SULF/BACITRAC ZN/POLY 15 GM TUBE TP SCH (08:22)
[2017-01-28] MEDS: ACIDOPHILUS/BULGARICUS 1 EACH TAB.CHEW PO SCH ×3 (08:22→16:40)
[2017-01-28] MEDS: PANTOPRAZOLE 40 MG VIAL IV SCH (08:22)
[2017-01-28] MEDS: HEPARIN SODIUM, PORCINE 5000 UNITS/1 ML VIAL SQ SCH ×2 (08:23→21:09)
[2017-01-28] MEDS ORDERED: POTASSIUM CHLORIDE 20 MEQ POWDER PACKET GT ONE (09:30)
--- NOTE | 2017-01-28 11:00 | NUR ---
Weaning Trial Patient off sedation since 1000, awake, eyes open and able to follow simple command(close eyes and hand as400 developer) at times but very restless. Mech vent changed to SIMV per Dr. Delgado. Unable to follow tolerate weaning, RR on 40's and shallow.
[2017-01-28] MEDS: CLONIDINE HCL 0.2MG/24H PTWK 1 EA PATCH TD SCH (11:43)
[2017-01-28] MEDS: LORAZEPAM INJ 2 MG/ML VIAL IV PRN ×2 (12:17→16:40)
[2017-01-28] MEDS ORDERED: IV SET PRIMARY PUMP SET 1 EA INFUS.SET MC ONE (16:34)
--- NOTE | 2017-01-28 19:46 | NUR ---
agricultural mechanic. initial assessment. received the pt REST ON THE BED. ORALLY INTUBATED. SEDATED WITH DIPRIVAN. ETT #7.5CM,LIP 23CM,AC 18,TV 650, FIO2 40%,PEEP 5. SAT 98%. NO ACUTE DISTRESS NOTED. CASKET INSPECTOR SHOWING NSR. IV RT HAND 20G. IVF D5W 50 ML/H. DIPRIVAN 50 MCG/KG/MIN.BRIAN SOFT WRIST RESTRAINT CJHECKED AND RELEASED. NO INJURY OR REDNESS NOTED. FC PATENT URINE DRAINING. HOB ELEVATED. TURN AND REPOSITION Q2H. WILL CONTINUE TO MONITOR VITALS.RT NARE NGT INTACT. NOVA SOURCE 30 ML/H.
[2017-01-29] VITALS (47 sets, daily range): BP systolic 96–139; BP diastolic 54–89
[2017-01-29] MEDS: IV D5W 1,000 ML IV PRN ×2 (00:09→17:32)
[2017-01-29] MEDS: IPRATROPIUM NEB FS 0.5 MG/2.5 ML AMPUL.NEB NEB SCH ×5 (03:12→20:19)
[2017-01-29] MEDS: ALBUTEROL HALF STRENGTH 1.25 MG/3 ML VIAL.NEB NEB SCH ×5 (03:12→20:19)
--- NOTE | 2017-01-29 03:47 | NUR ---
EMBOSSING TOOLSETTER AM CARE, ORAL CARE BED BATH GIVEN. LINEN CHANGED, REMAINING SAME VENT SETTING TOLERATED WELL,CAREER ADVISOR SHOWING S [place], IV RTHAND 20G, IVF D5W 50 ML.H, DIPRIVAN 50 MCG/KG/MIN, NGT FEEDING TOLERATED WE,LLFC PATENT URINE DRAINING. AFEBRILE. HOB ELEVATED, TURN AND REPOSITION Q2H. WILL CONTINUE TO MONITOR VITALS.
[2017-01-29] MEDS: PROPOFOL 100 ML IV PRN ×5 (05:03→20:50)
[2017-01-29] MEDS: RENAL NOVASOURCE 1,000 ML BOTTLE GT PRN (05:12)
[2017-01-29] MEDS: PIPERACILLIN /TAZOBACTAM 2.25 G in IV D5W 50 ML IV SCH (05:13)
[2017-01-29] MEDS: METOCLOPRAMIDE HCL 10 MG/2 ML VIAL IV SCH ×3 (05:15→20:43)
[2017-01-29 05:32] LABS: CALCIUM, SERUM 8.6 mg/dL (8.5-10.1); POTASSIUM 3.7 mmol/L (3.5-5.1)
--- NOTE | 2017-01-29 08:14 | NUR ---
INITIAL CELERY WRAPPER NOTE RCVD PT SEDATED ON DIPRIVAN, ABLE TO OPEN EYES TO NAME. INTUBATED 7.5 23 AT LIP. SHOWING NO S/O DISTRESS OR PAIN. TOLERATING ORDERED VENT SETTINGS. SB ON TELE MONITOR. RIGHT NG TUBE PLACEMENT VERIFIED BY AUSCULTATION. RESIDUAL OF 5ML OBSERVED. NEWTON IN PLACE DRAINING YELLOW URINE. IV SITES C/D/I/PATENT. NO S/O INFILTRATION OR PHLEBITIS OBSERVED UPON FLUSHING. WILL CONTINUE TO MONITOR PT FOR SAFETY AND COMFORT. CALL LIGHT WITHIN REACH. BED IN LOW AND LOCKED POSITION.
[2017-01-29] MEDS: PANTOPRAZOLE 40 MG VIAL IV SCH (09:23)
[2017-01-29] MEDS: ACIDOPHILUS/BULGARICUS 1 EACH TAB.CHEW PO SCH ×3 (09:23→17:28)
[2017-01-29] MEDS: NEOMY SULF/BACITRAC ZN/POLY 15 GM TUBE TP SCH (09:23)
[2017-01-29] MEDS: HEPARIN SODIUM, PORCINE 5000 UNITS/1 ML VIAL SQ SCH ×2 (09:24→20:44)
[2017-01-29] MEDS ORDERED: FUROSEMIDE 20 MG/2 ML VIAL IV ONE (10:00)
--- NOTE | 2017-01-29 10:23 | NUR ---
CUT AND COVER LINE WORKER NOTE NO PLAN FOR WEANING TODAY PER DR. WOODRUFF. PT HAS EYES OPEN, ABLE TO NOD WHEN ASKED IF HE'S ABLE TO HEAR ME. WILL CONTINUE TO MONITOR.
[2017-01-29] MEDS: PIPERACILLIN /TAZOBACTAM 3.375 G in IV D5W 50 ML IV SCH ×3 (11:48→23:00)
[2017-01-29] MEDS: LORAZEPAM INJ 2 MG/ML VIAL IV PRN ×3 (11:49→23:00)
--- NOTE | 2017-01-29 12:18 | NUR ---
FRONT LINE SUPERVISOR NOTE PT APPEARS TO BE RESTLESS ON CURRENT DIPRIVAN RATE. ATIVAN GIVEN. VITAL SIGNS STABLE. WILL CONTINUE TO MONITOR. EARLIER TODAY DR. ELMORE DID HIS ROUNDS HE WAS GIVEN UPDATE ON PT'S CONDITION. NO NEW ORDERS RCVD. CONTINUE CURRENT MANAGEMENT. DR. HARRIS IN UNIT THIS AM GAVE PT A DOSE OF LASIX. WILL MONITOR PT'S UOP. CX IN AM.
[2017-01-29] MEDS ORDERED: IV SET PRIMARY PUMP SET 1 EA INFUS.SET MC ONE ×2 (17:27→20:48)
--- NOTE | 2017-01-29 18:47 | NUR ---
JAVA SOFTWARE NOTE PT INTUBATED ON SEDATION WITH EYES OPEN, DROWSY, ABLE TO FOLLOW SIMPLE COMMANDS. SR ON TELE MONITOR. RIGHT NG TUBE AND NEWTON IN PLACE. RESTRAINTS ON BRIAN. WRISTS. CIRCULATION CHECKS PERFORMED. IV SITES C/D/I/PATENT. NO S/O INFILTRATION OR PHLEBITIS OBSERVED UPON FLUSHING. CALL LIGHT WITHIN REACH. BED IN LOW AND LOCKED POSITION. PT'S CARE WILL BE ENDORSED TO SPRAY BOOTH OPERATOR RN FOR CONTINUITY OF CARE.
[2017-01-29] MEDS: MORPHINE SULFATE INJ 2 MG/ML DISP.SYRIN IV PRN (20:43)
--- NOTE | 2017-01-29 20:43 | NUR ---
QUALITY REVIEW SPECIALIST PT IS SHOWING SIGNS OF PAIN AFTER BEING REPOSITIONED. FREQUENT GRIMACING AND RESTLESSNESS. PRN MORPHINE GIVEN.
--- NOTE | 2017-01-29 23:00 | NUR ---
CUSTOMS ENTRY CLERK: PT IS AGITATED AND RESTLESS. ALL NEEDS MET . PRN ATIVAN GIVEN .
[2017-01-30] VITALS (47 sets, daily range): BP systolic 93–141; BP diastolic 59–97
[2017-01-30] MEDS: ALBUTEROL HALF STRENGTH 1.25 MG/3 ML VIAL.NEB NEB SCH ×6 (00:20→20:28)
[2017-01-30] MEDS: IPRATROPIUM NEB FS 0.5 MG/2.5 ML AMPUL.NEB NEB SCH ×6 (00:20→20:28)
[2017-01-30] MEDS: PROPOFOL 100 ML IV PRN ×6 (00:21→22:25)
[2017-01-30] MEDS: RENAL NOVASOURCE 1,000 ML BOTTLE GT PRN ×2 (01:21→22:25)
[2017-01-30] MEDS: LORAZEPAM INJ 2 MG/ML VIAL IV PRN ×2 (03:37→13:28)
[2017-01-30] MEDS: METOCLOPRAMIDE HCL 10 MG/2 ML VIAL IV SCH ×3 (04:51→20:30)
[2017-01-30] MEDS: PIPERACILLIN /TAZOBACTAM 3.375 G in IV D5W 50 ML IV SCH (05:00)
[2017-01-30 05:10] LABS: BASOPHILS # (AUTO) 0.1 /CMM (0.0-0.2); BASOPHILS % (AUTO) 0.6 % (0.0-2.0); EOSINOPHILS # (AUTO) 0.4 /CMM (0.0-0.7); EOSINOPHILS % (AUTO) 3.6 % (0.0-6.0); HEMATOCRIT 29 % (39-51); HEMOGLOBIN 9.5 g/dL (13.5-17.5); LYMPHOCYTES # (AUTO) 2.5 /CMM (0.8-4.8); LYMPHOCYTES % (AUTO) 24.5 % (20.0-44.0); MEAN CORPUSCULAR HEMOGLOBIN 30 PG (26.0-33.0); MEAN CORPUSCULAR HGB CONC 33 g/dl (31.0-36.0); MEAN CORPUSCULAR VOLUME 89 fL (80-96); MONOCYTES % (AUTO) 10.3 % (2.0-12.0); NEUTROPHILS # (AUTO) 6.1 /CMM (1.8-8.9); PLATELET COUNT (AUTO) 741 /CMM (150-450); RDW COEFFICIENT OF VARIATION 14.6 (11.5-15.0); RED BLOOD CELL COUNT(AUTO) 3.23 MIL/uL (4.5-6.0)
[2017-01-30 05:20] LABS: CALCIUM, SERUM 8.9 mg/dL (8.5-10.1); CREATININE 2.1 mg/dL (0.6-1.3)
--- NOTE | 2017-01-30 07:28 | NUR ---
RT PATIENT REC'D ORALLY INTUBATED ON [facility] VENT WITH SETTINGS SET PER . VENT ALARMS CHECKED +AUDIBLE. CUFF PRESSURE CHECKED NICU RN. SX'D WITH MOD AMT PALE YELLOW SEMITHICK SECRETIONS. AMBU BAG AT HOB. CONT CURRENT PLAN OF CARE. Addendum: 01/30/17 at 1026 by JOHANA VAZQUEZ RT Amended: Links added.
--- NOTE | 2017-01-30 07:46 | NUR ---
INITIAL PHOTOGRAPH PRINTER NOTE RCVD PT INTUBATED ETT 7.5 23 AT LIP, SEDATED ON DIPRIVAN. TOLERATING ORDERED VENT SETTINGS. SR ON TELE. NG TUBE PLACEMENT VERIFIED, 10ML CREAM COLORED RESIDUAL OBSERVED. TOLERATING TUBE FEEDING WELL. NEWTON DRAINING YELLOW URINE. RESTRAINTS IN PLACE. CIRCULATION CHECKS DONE. IV SITES C/D/I/PATENT. NO S/O INFILTRATION OR PHLEBITIS OBSERVED. CALL LIGHT WITHIN REACH. BED IN LOW AND LOCKED POSITION.WILL CONTINUE TO MONITOR PT FOR SAFETY AND COMFORT.
[2017-01-30] MEDS: PANTOPRAZOLE 40 MG VIAL IV SCH (08:30)
[2017-01-30] MEDS: NEOMY SULF/BACITRAC ZN/POLY 15 GM TUBE TP SCH (08:30)
[2017-01-30] MEDS: ACIDOPHILUS/BULGARICUS 1 EACH TAB.CHEW PO SCH ×3 (08:30→17:00)
[2017-01-30] MEDS: HEPARIN SODIUM, PORCINE 5000 UNITS/1 ML VIAL SQ SCH ×2 (08:33→20:31)
[2017-01-30] MEDS ORDERED: IV SET PRIMARY PUMP SET 1 EA INFUS.SET MC ONE ×2 (08:53→20:40)
[2017-01-30] MEDS ORDERED: FUROSEMIDE 40 MG/4 ML VIAL IV ONE (10:30)
--- NOTE | 2017-01-30 11:52 | NUR ---
TAILOR GARMENT FITTER NOTE ARTURO, PATROL INSPECTOR AND DR. ELMORE IN UNIT INFORMED OF PT'S PLATELETS TRENDING UP DESPITE HEPARIN PROPHYLAXIS ON BOARD. NEW CONSULT FOR DR. ZARATE ORDERED. DR. WOODRUFF IN UNIT INFORMED THAT PT'S WEANING WILL BE DONE TOMORROW AND TO LET PT REST FOR TODAY. CONTINUE TO BE DIURESE PER DR. JULIEN. WILL CONTINUE TO MONITOR PT.
[2017-01-30] MEDS ORDERED: SECONDARY IV SET 1 EA INFUS.SET MC ONE (12:11)
[2017-01-30] MEDS: POTASSIUM CL. PREMIX PERIPHER. 50 ML IV SCH ×4 (12:17→16:40)
[2017-01-30] MEDS: IV D5W 1,000 ML IV PRN ×2 (14:22→18:15)
--- NOTE | 2017-01-30 19:28 | NUR ---
UNIT CLERK NOTE PT REMAINS INTUBATED, SEDATED ON DIPRIVAN STILL OPENS EYES. SB-SR ON TELE. TOLERATING ORDERED VENT SETTINGS WELL. ETT 7.5 23 AT LIP. RIGHT NG TUBE PLACEMENT VERIFIED AND SECURED WITH TAPE, NO RESIDUAL OBSERVED. NEWTON IN PLACE DRAINING YELLOW URINE. BILATERAL SOFT WRIST RESTRAINTS IN PLACE. CIRCULATION CHECKS PERFORMED. IV SITES CONTINUE TO BE C/D/I/PATENT.NO S/O INFILTRATION OR PHLEBITIS OBSERVED. BED IN LOW AND LOCKED POSITION. CALL LIGHT WITHIN REACH. PT'S CARE WILL BE ENDORSED TO COUNTY ADMINISTRATOR RN FOR CONTINUITY OF CARE.
[2017-01-30] MEDS: MORPHINE SULFATE INJ 2 MG/ML DISP.SYRIN IV PRN (20:30)
--- NOTE | 2017-01-30 20:30 | NUR ---
BEEF GRADER: PT SHOWS SIGNS OF PAIN . FREQUENT GRIMACING NOTED AND PT IS RESTLESS. PRN MORPHINE GIVEN . REPOSITIONED PT FOR COMFORT WELL.
[2017-01-31] VITALS (33 sets, daily range): BP systolic 94–138; BP diastolic 55–93
[2017-01-31] MEDS: LORAZEPAM INJ 2 MG/ML VIAL IV PRN ×4 (01:19→19:07)
--- NOTE | 2017-01-31 01:21 | NUR ---
FITNESS FLOOR ATTENDANT PT IS VERY AGITATED. PRN ATIVAN GIVEN.
[2017-01-31] MEDS: PROPOFOL 100 ML IV PRN ×2 (02:22→07:18)
[2017-01-31] MEDS: IPRATROPIUM NEB FS 0.5 MG/2.5 ML AMPUL.NEB NEB SCH ×7 (03:47→23:27)
[2017-01-31] MEDS: ALBUTEROL HALF STRENGTH 1.25 MG/3 ML VIAL.NEB NEB SCH ×7 (03:47→23:27)
[2017-01-31] MEDS: METOCLOPRAMIDE HCL 10 MG/2 ML VIAL IV SCH ×3 (04:56→20:05)
[2017-01-31 05:16] LABS: BASOPHILS % (AUTO) 0.3 % (0.0-2.0); EOSINOPHILS # (AUTO) 0.3 /CMM (0.0-0.7); HEMATOCRIT 30 % (39-51); HEMOGLOBIN 10.1 g/dL (13.5-17.5); LYMPHOCYTES # (AUTO) 2.4 /CMM (0.8-4.8); LYMPHOCYTES % (AUTO) 22.9 % (20.0-44.0); MEAN CORPUSCULAR HEMOGLOBIN 30 PG (26.0-33.0); MEAN CORPUSCULAR HGB CONC 34 g/dl (31.0-36.0); MEAN CORPUSCULAR VOLUME 88 fL (80-96); MONOCYTES # (AUTO) 0.9 /CMM (0.1-1.30); MONOCYTES % (AUTO) 8.4 % (2.0-12.0); NEUTROPHILS # (AUTO) 6.9 /CMM (1.8-8.9); NEUTROPHILS % (AUTO) 65.4 % (43.0-81.0); PLATELET COUNT (AUTO) 856 /CMM (150-450); RDW COEFFICIENT OF VARIATION 14.8 (11.5-15.0); WHITE BLOOD COUNT (AUTO) 10.6 K/uL (4.3-11.0)
[2017-01-31 05:33] LABS: CALCIUM, SERUM 9.2 mg/dL (8.5-10.1); CREATININE 2.1 mg/dL (0.6-1.3); MAGNESIUM 1.9 mg/dL (1.8-2.4); PHOSPHORUS 5.7 mg/dL (2.5-4.9); POTASSIUM 3.1 mmol/L (3.5-5.1)
[2017-01-31 05:47] LABS: THYROID STIMULATING HORMONE 3.458 uIU/mL (0.358-3.74); URIC ACID 4.6 mg/dL (2.6-7.2)
--- NOTE | 2017-01-31 07:15 | NUR ---
RN INITIAL NOTES RECEIVED PT INTUBATED, ET 7.5, IN PLACE. [facility] WITH FF SETTINGS: AC18, TV650, FI02 40%, PEEP +5. NO RESPIRATORY DISTRESS NOTED. NO SOB NOTED. NO SIGNS OF PAIN NOTED. PT SEDATED. ON DIPRIVAN AT 50MCG/KG/MIN. ON D5W AT 50ML/HR. RFA #[address] NGT, RIGHT NARE, IN PLACE. TOLERATING NOVASOURCE AT 30ML/HR. FC IN PLACE. NO HEMATURIA NOTED. PT COMFORTABLE. WILL CONTINUE TO MONITOR.
[2017-01-31] MEDS ORDERED: DC PROPOFOL WHEN EXTUBATED XX PRN ×2 (08:00→10:30)
--- NOTE | 2017-01-31 08:30 | NUR ---
RN NOTES PT PLACED ON SIMV 4, PS12, PEEP +5 WEANING TRAILS. HOB ELEVATED. NO RESPIRATORY DISTRESS NOTED. NO SOB NOTED. WILL CONTINUE TO MONITOR.
[2017-01-31] MEDS: PANTOPRAZOLE 40 MG VIAL IV SCH (08:31)
[2017-01-31] MEDS: ACIDOPHILUS/BULGARICUS 1 EACH TAB.CHEW PO SCH ×3 (08:31→16:33)
[2017-01-31] MEDS: NEOMY SULF/BACITRAC ZN/POLY 15 GM TUBE TP SCH (08:32)
[2017-01-31] MEDS: HEPARIN SODIUM, PORCINE 5000 UNITS/1 ML VIAL SQ SCH ×2 (08:41→20:05)
[2017-01-31 09:53] LABS: ABG BASE EXCESS -0.9 mmol/L; ABG OXYGEN SATURATION 97.6 % (92.0-98.5); ABG PCO2 38.8 mmHg (35.0-45.0); ABG PH 7.403 (7.350-7.450); ABG PO2 123.9 mmHg (75.0-100.0); AaDO2 116.7 mmHg; COHb 0.6 % (0.5-1.5); MetHb 0.9 % (0.0-1.5); O2Hb 96.1 % (94.0-97.0); PEEP,BG 5 cm H2O; SITE, ABG Left Radial; VT, ABG 650 mL
[2017-01-31 10:23] LABS: FOLIC ACID 12.9 NG/ML (8.6-58.9)
--- NOTE | 2017-01-31 10:25 | NUR ---
RN NOTES ABG RESULT RELAYED TO DR. WOODRUFF. PT EXTUBATED. PLACED ON O2 VIA NC AT 3LPM. HOB ELEVATED. PT AWAKE, A/OX1. REORIENTATION DONE. NO SIGNS OF RESPIRATORY DISTRESS NOTED. NO SOB NOTED. NO SIGNS OF PAIN NOTED. WILL CLOSELY MONITOR
--- NOTE | 2017-01-31 10:28 | NUR ---
Pt extubated (per MD order) at 1025 and placed on O2 via nasal cannula.
[2017-01-31] MEDS ORDERED: POTASSIUM CHLORIDE 20 MEQ TAB.PRT.SR PO ONE (10:30)
--- NOTE | 2017-01-31 10:35 | NUR ---
RN NOTES SEEN AND EXAMINED BY DR. ELMORE. PT EXTUBATED. NO RESPIRATORY DISTRESS NOTED. KEPT HOB ELEVATED. NO SIGNS OF PAIN NOTED. AWARE OF CURRENT LAB VALUES: WBC 10.6, HGB 10.2, HCT 30, SODIUM 146, POTASSIUM 3.1, BUN 33, CREA 2.1. ON D5W AT 50ML/HR. MD ORDERED KCL 40MEQ/GT X1 REPLACEMENT, NOTED AND CARRIED OUT. ALSO AWARE OF CXR RESULT. WILL CONTINUE TO MONITOR.
--- NOTE | 2017-01-31 10:35 | NUR ---
RT EXTUBATION @ [address] WOODRUFF ORDER POST ABG PT. PLACED ON 3 L.MIN N/C AND HARPREET WELL NO STRIDOR NOTED AND CONTINUE FOR MONITORING. Addendum: 01/31/17 at 1828 by PRITESH GALVEZ RT Amended: Links added.
[2017-01-31] MEDS: IV D5W 1,000 ML IV PRN (11:38)
[2017-01-31] MEDS: RENAL NOVASOURCE 1,000 ML BOTTLE GT PRN (16:33)
--- NOTE | 2017-01-31 20:49 | NUR ---
PT AWAKE ALERT FOLLOWS COMMANDS, SO I REMOVED HIS RESTRAINTS AND REMOVED THE KCI MATTRESS SO PT DOES NOT SLIP OUT OF BED
[2017-01-31] MEDS: MORPHINE SULFATE INJ 2 MG/ML DISP.SYRIN IV PRN (23:12)
[2017-02-01] VITALS (23 sets, daily range): BP systolic 90–149; BP diastolic 40–94
--- NOTE | 2017-02-01 01:28 | NUR ---
PT WONT STOP TURNING IN BED AND ACCIDENTALLY PULLED OUT HIS NGT, PT IS REFUSING ANOTHER NGT, PT IS AWAKE ALERT. WILL CONTINUE TO MONITOR
[2017-02-01] MEDS: LORAZEPAM INJ 2 MG/ML VIAL IV PRN ×3 (01:58→21:16)
[2017-02-01] MEDS: IPRATROPIUM NEB FS 0.5 MG/2.5 ML AMPUL.NEB NEB SCH ×6 (03:57→23:30)
[2017-02-01] MEDS: ALBUTEROL HALF STRENGTH 1.25 MG/3 ML VIAL.NEB NEB SCH ×6 (03:57→23:30)
[2017-02-01] MEDS: METOCLOPRAMIDE HCL 10 MG/2 ML VIAL IV SCH ×3 (04:30→20:25)
[2017-02-01 05:13] LABS: CALCIUM, SERUM 9.1 mg/dL (8.5-10.1); CREATININE 1.6 mg/dL (0.6-1.3); POTASSIUM 3.2 mmol/L (3.5-5.1)
[2017-02-01] MEDS: MORPHINE SULFATE INJ 2 MG/ML DISP.SYRIN IV PRN (05:36)
--- NOTE | 2017-02-01 07:32 | NUR ---
RT PATIENT ASSESSED AND IS AWAKE, ALERT, RESPONSIVE, WITH ZERO SOB AND DIM CLEAR B/S. PATIENT REFUSED TX AT THIS TIME
--- NOTE | 2017-02-01 07:45 | NUR ---
ICU/RN - Initial Notes Received pt in bed, alert and oriented x2, reoriented pt to date/time. Post extubation yesterday @ 1030, no s/s of respiratory distress. On O2 @ 3lpm via nasal cannula. Denies pain or discomfort. On tele reading SB 58. Assessed pt's swallowing at bedside, able to swallow water and chocolate pudding with no s/s of cough or aspiration. Perez catheter intact draining urine to gravity. IVF infusing well. Safety and comfort measures in place. Will continue to monitor pt closely.
[2017-02-01] MEDS: NEOMY SULF/BACITRAC ZN/POLY 15 GM TUBE TP SCH (08:06)
[2017-02-01] MEDS: IV D5W 1,000 ML IV PRN (08:06)
[2017-02-01] MEDS: ACIDOPHILUS/BULGARICUS 1 EACH TAB.CHEW PO SCH ×3 (08:06→16:28)
[2017-02-01] MEDS: PANTOPRAZOLE 40 MG VIAL IV SCH (08:06)
--- NOTE | 2017-02-01 08:10 | NUR ---
ICU/RN - Notes Pt able to swallow AM medications without issue.
[2017-02-01] MEDS: HEPARIN SODIUM, PORCINE 5000 UNITS/1 ML VIAL SQ SCH ×2 (08:16→20:26)
[2017-02-01] MEDS ORDERED: POTASSIUM CHLORIDE 20 MEQ TAB.PRT.SR PO ONE (08:30)
--- NOTE | 2017-02-01 09:11 | NUR ---
ICU/RN - Notes Pt seen and evaluated by Dr Delgado with new orders noted. Pt cleared for MedSur status.
--- NOTE | 2017-02-01 09:40 | NUR ---
ICU/RN - Notes Perez catheter discontinued as ordered. Will monitor for post void.
[2017-02-01 10:23] LABS: CARCINOEMBRYONIC AG (CEA) 2.6 ng/mL (0.0-4.7); VIT D, 25-HYDROXY 11.1 ng/mL (30.0-100.0)
--- NOTE | 2017-02-01 10:41 | NUR ---
ICU/RN - Notes Post void noted, pt able to urinate without issue.
[2017-02-01 13:13] LABS: BASOPHILS # (AUTO) 0.1 /CMM (0.0-0.2); BASOPHILS % (AUTO) 0.5 % (0.0-2.0); EOSINOPHILS # (AUTO) 0.3 /CMM (0.0-0.7); EOSINOPHILS % (AUTO) 2.5 % (0.0-6.0); HEMATOCRIT 38 % (39-51); HEMOGLOBIN 12.2 g/dL (13.5-17.5); LYMPHOCYTES # (AUTO) 2.6 /CMM (0.8-4.8); LYMPHOCYTES % (AUTO) 22.9 % (20.0-44.0); MEAN CORPUSCULAR HEMOGLOBIN 29 PG (26.0-33.0); MEAN CORPUSCULAR HGB CONC 32 g/dl (31.0-36.0); MEAN CORPUSCULAR VOLUME 89 fL (80-96); MONOCYTES # (AUTO) 0.9 /CMM (0.1-1.30); MONOCYTES % (AUTO) 7.9 % (2.0-12.0); NEUTROPHILS # (AUTO) 7.4 /CMM (1.8-8.9); NEUTROPHILS % (AUTO) 66.2 % (43.0-81.0); PLATELET COUNT (AUTO) 715 /CMM (150-450); RDW COEFFICIENT OF VARIATION 14.1 (11.5-15.0); WHITE BLOOD COUNT (AUTO) 11.2 K/uL (4.3-11.0)
--- NOTE | 2017-02-01 14:00 | NUR ---
Social service consult requested by MARK Partida for homelessness. Per H&P report, pt. is a 51-year-old male patient was brought in to the emergency department by EMS; a bystander from the bus stop called 911- patient was seen altered and semiconscious. On assessment, the patient is lethargic, responds to painful stimuli. The initial vital signs in the emergency department showed hypoxia - recorded at 70%-80%. According to the ED physician, the patient admits to using crystal meth today; however, the patient becomes agitated and belligerent; thus, prompting him to give Ativan for his agitation. The remainder of my exam are limited secondary to the current patient's mental status; thus, unable to obtain any meaningful information. . The patient was subsequently admitted for Acute Hypoxic Respiratory Failure to the intensive care unit for further treatment. Pt. was extubated on 01/31/17. NILSA met with pt. bedside. Pt. is A&O x 3. Pt. was pleasant and cooperative with SW during the assessment. Pt. informed SW he is homeless and has been homeless for the past 6 years. Pt. lived in [place] prior to becoming homeless. Pt's mother resides in [place] and pt. has expressed wanting to go back to [place]. Pt. has a brother Ángel Pickett who lives in [place]. However, when NILSA asked for his phone number, pt. was unable to recollect the phone number. NILSA informed pt. if he remembers the phone number to let his nurse know. Pt. informed SW that [facility] are familiar with him and can assist him to go back to [place] through the [employer]. NILSA informed pt. she will call the [facility] and inquire regarding the information he provided. Pt. uses drugs weekly, preferably methamphetamines. Pt. also states he drinks 2 to 3 beers a day. Pt. smokes 4 to 5 cigarettes per day. Pt. denies suicidal/homicidal ideations and visual/auditory hallucinations at this time. Pt. is open to assisted placement at time of discharge. SW to follow up with pt. prior to discharge for assisted placement and resources. Addendum: 02/01/17 at 1417 by SUNDAY ASH Pt. receives GR and food stamps at this time.
--- NOTE | 2017-02-01 14:27 | NUR ---
ICU/RN - Notes Pt noted with restlessness, constantly squirming around in bed. Administered Ativan 1mg IVP as ordered for PRN agitation. Will continue to monitor.
--- NOTE | 2017-02-01 15:58 | NUR ---
RT PATIENT ASSESSED AND IS AWAKE, ALERT, RESPONSIVE, WITH ZERO SOB AND DIM CLEAR B/S. PATIENT REFUSED TX AT THIS TIME
--- NOTE | 2017-02-01 19:20 | NUR ---
ICU/RN - Notes Report called to MANUEL Ni for continuity of care. Pt to be transferred to [facility] room 201-1.
--- NOTE | 2017-02-01 19:30 | NUR ---
RN NOTES RECEIVED PT. FROM ICU , A/OX3 WITH CONFUSION, IV FLUID RUNNING D5W@ 50ML/HR, NO PAIN NOTED, NO SOB, CALL LIGHT WITHIN REACH, SIDERAILS UPX2 CONTINUE TO MONITOR
--- NOTE | 2017-02-01 19:30 | NUR ---
ICU/RN- PT. TRANSFERRED TO [facility] BY BED PER PROTOCOL IN A STABLE CONDITION.
--- NOTE | 2017-02-01 21:18 | NUR ---
RN NOTES PT. IS SO ANXIOUS, TRYING TO GET OUT OF BED, ATIVAN 1MG IV GIVEN ORDERED, V/S STABLE
[2017-02-02] MEDS: IV D5W 1,000 ML IV PRN (01:37)
[2017-02-02] MEDS: ALBUTEROL HALF STRENGTH 1.25 MG/3 ML VIAL.NEB NEB SCH ×5 (03:06→20:24)
[2017-02-02] MEDS: IPRATROPIUM NEB FS 0.5 MG/2.5 ML AMPUL.NEB NEB SCH ×5 (03:06→20:24)
[2017-02-02] MEDS: METOCLOPRAMIDE HCL 10 MG/2 ML VIAL IV SCH ×2 (04:57→12:15)
--- NOTE | 2017-02-02 05:00 | NUR ---
RN NOTES IV LINE GOT INFILTRATED- NEW IV LINE INSERTED
--- NOTE | 2017-02-02 06:16 | NUR ---
RN NOTES AWAKE, MORNING CARE RENDERED, IV LINE PATENT NO REDNESS OR SWOLLEN, PT. NEEDS ATTENDED.; ENDORSED TO DAYSHIFT NURSE FOR CONTINUITY OF CARE
[2017-02-02] MEDS: LORAZEPAM INJ 2 MG/ML VIAL IV PRN (06:30)
[2017-02-02 06:31] LABS: BASOPHILS % (AUTO) 0.2 % (0.0-2.0); EOSINOPHILS # (AUTO) 0.3 /CMM (0.0-0.7); EOSINOPHILS % (AUTO) 3.5 % (0.0-6.0); HEMATOCRIT 37 % (39-51); HEMOGLOBIN 12.1 g/dL (13.5-17.5); LYMPHOCYTES # (AUTO) 2.1 /CMM (0.8-4.8); LYMPHOCYTES % (AUTO) 22.5 % (20.0-44.0); MEAN CORPUSCULAR HEMOGLOBIN 29 PG (26.0-33.0); MEAN CORPUSCULAR HGB CONC 33 g/dl (31.0-36.0); MEAN CORPUSCULAR VOLUME 88 fL (80-96); MONOCYTES # (AUTO) 0.8 /CMM (0.1-1.30); MONOCYTES % (AUTO) 8.6 % (2.0-12.0); NEUTROPHILS # (AUTO) 6.1 /CMM (1.8-8.9); NEUTROPHILS % (AUTO) 65.2 % (43.0-81.0); PLATELET COUNT (AUTO) 685 /CMM (150-450); RDW COEFFICIENT OF VARIATION 13.8 (11.5-15.0); RED BLOOD CELL COUNT(AUTO) 4.17 MIL/uL (4.5-6.0); WHITE BLOOD COUNT (AUTO) 9.4 K/uL (4.3-11.0)
--- NOTE | 2017-02-02 06:32 | NUR ---
RN NOTES PT. IS SO ANXIOUS AND TRYING TO GET OUT OF BED- ATIVAN 1 MG IV GIVEN ORDERED, V/S STABLE
--- NOTE | 2017-02-02 07:30 | NUR ---
MS/RN Patient received Patient received from machinist 2nd shift. Sitter at bedside for safety. Appears calm, was given ativan at 0630. Bed in low setting, side rails X3 in upright position. Call light within reach, will continue to monitor and ensure safety.
[2017-02-02 08:00] VITALS: BP_SYST 164; BP_DIAS 80; BP_DIAS 90
[2017-02-02] MEDS: ACIDOPHILUS/BULGARICUS 1 EACH TAB.CHEW PO SCH ×3 (08:17→16:30)
[2017-02-02] MEDS: PANTOPRAZOLE 40 MG VIAL IV SCH (08:17)
[2017-02-02] MEDS: HEPARIN SODIUM, PORCINE 5000 UNITS/1 ML VIAL SQ SCH (08:18)
[2017-02-02] MEDS: NEOMY SULF/BACITRAC ZN/POLY 15 GM TUBE TP SCH (08:20)
[2017-02-02 08:58] LABS: CALCIUM, SERUM 9.2 mg/dL (8.5-10.1); CREATININE 1.5 mg/dL (0.6-1.3); MAGNESIUM 1.7 mg/dL (1.8-2.4); PHOSPHORUS 3.6 mg/dL (2.5-4.9)
--- NOTE | 2017-02-02 09:00 | NUR ---
MS/RN Medications Morning medications administered as ordered.
[2017-02-02] MEDS ORDERED: POTASSIUM CHLORIDE 20 MEQ POWDER PACKET PO ONE (09:30)
--- NOTE | 2017-02-02 10:00 | NUR ---
MS/RN S/B PT Seen by PT - patient remains at great risk of falling due to unstable gait/balance. Only to ambulate to bathroom and back.
--- NOTE | 2017-02-02 10:30 | NUR ---
MS/RN S/B Dr Morgan Seen by Dr Morgan - labs ordered for tomorrow.
--- NOTE | 2017-02-02 11:30 | NUR ---
MS/RN S/B Dr Berry (ID) Seen by Dr Berry - repeat cultures if temperature greater than 100.4
--- NOTE | 2017-02-02 15:43 | NUR ---
NILSA met with pt's RN Aretha to inquire if pt. gave her phone number for his brother Ángel and mother. Aretha gave SW pt's brother's contact and mother Vivi . NILSA contacted pt's brother Ángel and informed him about pt's being hospitalized. Ángel was unaware and informed NILSA not to call pt's mother, he would handle it. NILSA transferred the call to [email or web address] [phone] so that Ángel can speak to the pt. Addendum: 02/03/17 at 1117 by SUNDAY ASH Correction: Brother's name is Adilson tracey Neal.
[2017-02-02 16:00] VITALS: BP 120/74
--- NOTE | 2017-02-02 18:34 | NUR ---
MS/RN End note Heplock removed by patient at 1835, will attempt to reinsert. Has been calm and cooperative with plan of care, taking all medications as ordered. Will endorse to nightshift.
--- NOTE | 2017-02-02 19:30 | NUR ---
RN NOTES RECEIVED PT AWAKE ON BED, A/OX3, WITH CONFUSION, SITTER AT BEDSIDE, PT TRYING TO GET OUT OF BED, TALKED TO THE PT AND REMINDS HIM OF CONSEQUENCES IF HE FALL, PT WENT BACK TO BED, SIDERAILS UPX2 CONTINUT TO MONITOR
[2017-02-02 19:55] VITALS: BP 130/79
[2017-02-02 20:00] VITALS: BP 130/79
[2017-02-02] MEDS ORDERED: METOCLOPRAMIDE HCL 10 MG TABLET ONE (21:33)
[2017-02-02] MEDS: METOCLOPRAMIDE HCL 10 MG TABLET PO SCH (21:40)
--- NOTE | 2017-02-02 23:08 | NUR ---
RN NOTES CALLED ALEKSANDRA BASS AND INFORMED HIM THAT PT IS GETTING REGLAN 10MG IV BUT PT DOESN'T HAVE A LINE SINCE THIS MORNING THERER TRYING TO PUT AN IV ACCESS BUT FAILED. DR. MELÉNDEZ CHANGE REGLAN 10MG IV WELL ATIVAN 1MG IV TO PO, ORDER NOTED AND CARRIED OUT
[2017-02-03] MEDS: ALBUTEROL HALF STRENGTH 1.25 MG/3 ML VIAL.NEB NEB SCH ×7 (00:10→23:52)
[2017-02-03] MEDS: IPRATROPIUM NEB FS 0.5 MG/2.5 ML AMPUL.NEB NEB SCH ×7 (00:11→23:52)
[2017-02-03] MEDS ORDERED: LORAZEPAM 1 MG TABLET ONE (01:38)
[2017-02-03] MEDS: LORAZEPAM 1 MG TABLET PO PRN (01:45)
--- NOTE | 2017-02-03 01:47 | NUR ---
RN NOTES PT IS AL LITTLE BIT ANXIOUS AND WANTS SOMETHING TO SLEEP- ATIVAN 1MG PO GIVEN ORDERED, V/S STABLE
[2017-02-03] MEDS ORDERED: METOCLOPRAMIDE HCL 10 MG TABLET ONE (05:32)
[2017-02-03] MEDS: METOCLOPRAMIDE HCL 10 MG TABLET PO SCH ×3 (05:46→20:57)
[2017-02-03 06:36] LABS: BASOPHILS % (AUTO) 0.4 % (0.0-2.0); EOSINOPHILS # (AUTO) 0.4 /CMM (0.0-0.7); EOSINOPHILS % (AUTO) 4.2 % (0.0-6.0); HEMATOCRIT 36 % (39-51); HEMOGLOBIN 12.1 g/dL (13.5-17.5); LYMPHOCYTES # (AUTO) 2.2 /CMM (0.8-4.8); LYMPHOCYTES % (AUTO) 22.6 % (20.0-44.0); MEAN CORPUSCULAR HEMOGLOBIN 30 PG (26.0-33.0); MEAN CORPUSCULAR HGB CONC 34 g/dl (31.0-36.0); MEAN CORPUSCULAR VOLUME 88 fL (80-96); MONOCYTES % (AUTO) 10.8 % (2.0-12.0); NEUTROPHILS # (AUTO) 5.9 /CMM (1.8-8.9); PLATELET COUNT (AUTO) 649 /CMM (150-450); RED BLOOD CELL COUNT(AUTO) 4.08 MIL/uL (4.5-6.0); WHITE BLOOD COUNT (AUTO) 9.6 K/uL (4.3-11.0)
--- NOTE | 2017-02-03 06:46 | NUR ---
RN NOTES AWAKE, SITTER AT BEDSIDE, DENIES PAIN, NO SOB, MORNING CARE RENDERED, CALL LIGHT WITHIN REACH, SIDERAILS UPX2 PT. NEEDS ATTENDED
[2017-02-03 06:47] LABS: CALCIUM, SERUM 8.8 mg/dL (8.5-10.1); CREATININE 1.4 mg/dL (0.6-1.3); POTASSIUM 3.4 mmol/L (3.5-5.1)
[2017-02-03 08:00] VITALS: BP_SYST 130; BP_SYST 142; BP_DIAS 69; BP_DIAS 89
--- NOTE | 2017-02-03 08:00 | NUR ---
MS 2 RN AM NOTES RECEIVED PT AWAKE ON BED, A/OX3, WITH CONFUSION, SITTER AT BEDSIDE, DENIES PAIN OR DISTRESS.PT HAS NO IV H/L SINCE LAST NIGHT-MD AWARE.WILL MONITOR. SIDERAILS UPX2 CONTINUE TO MONITOR
[2017-02-03] MEDS: PANTOPRAZOLE 40 MG VIAL IV SCH (09:21)
[2017-02-03] MEDS: ACIDOPHILUS/BULGARICUS 1 EACH TAB.CHEW PO SCH ×3 (09:21→16:40)
[2017-02-03] MEDS: PANTOPRAZOLE 40 MG TABLET.DR PO SCH (09:40)
--- NOTE | 2017-02-03 11:07 | NUR ---
NILSA called Pt's brother Adilson to inquire if he was able to speak to pt. yesterday. Adilson stated he did speak to the pt. and will be visiting him later this evening. NILSA met with pt. bedside. Pt. is A&OX 4. Pt. has a sitter bedside. Pt. informed SW he is "going crazy" being in the hospital and wants to go home with his brother this evening. NILSA explained to pt. the importance of continuing his plan of care and not leaving AMA. NILSA reiterated to pt. that he is unable to walk independently at this time and will need to continue physical therapy to ambulate independently. NILSA inquired with pt. what is his plan once he leaves the hospital. Pt. states he will stay with is brother for a few days and then would like to go to [place] to be with his mother Vivi. No social service needs are necessary at this and SW to follow up with pt. regarding discharge planning once pt. is medically cleared.
[2017-02-03] MEDS ORDERED: POTASSIUM CHLORIDE 10 MEQ TABLET.SA PO ONE (12:00)
[2017-02-03] MEDS: NEOMY SULF/BACITRAC ZN/POLY 15 GM TUBE TP SCH (13:09)
--- NOTE | 2017-02-03 13:19 | NUR ---
PT AMBULATED WITH P.T. ALONG THE HALLWAY WITH NO C/O DISTRESS OR DISCOMFORT.PT'S GAIT IS MUCH BETTER TODAY THAN YESTERDAY.
[2017-02-03] MEDS ORDERED: HYDROCODONE/APAP 10/325MG 1 EA TABLET PO PRN (14:30)
[2017-02-03] MEDS ORDERED: ONDANSETRON 4 MG TAB.RAPDIS PO PRN (14:30)
[2017-02-03] MEDS ORDERED: HYDROCODONE/APAP 5/325MG 1 EACH TABLET PO PRN (14:30)
[2017-02-03 16:00] VITALS: BP 139/85
--- NOTE | 2017-02-03 19:30 | NUR ---
MS RN NOTES RECEIVED ON BED A/O X4,FALL RISK,SITTER AT BEDSIDE.NO IV ACCESS,MD AWARE.BREATHING REGULAR,NOT IN ANY FORM OF DISTRESS.RT AT BEDSIDE ADMINISTERING BREATHING TX SCHEDULED.WILL CONTINUE TO MONITOR STATUS.
--- NOTE | 2017-02-03 19:38 | NUR ---
PT RESTING IN BED DENYING ANY PAIN OR DISTRESS.CALL LIGHT PLACED WITHIN REACH.
--- NOTE | 2017-02-03 20:57 | NUR ---
RN NOTES PT AWAKE, ALERT AND ORIENTED X3, NO SOB, NOT IN DISTRESS, DENIES ANY PAIN AND DISCOMFORT. VITAL SIGNS STABLE, PT APPEARS COMFORTABLE IN BED. SITTER AT BEDSIDE. DUE MEDICATION GIVEN AND TOLERATED WELL. WILL CONTINUE TO MONITOR PT.
[2017-02-03 22:00] VITALS: BP 130/86
[2017-02-04] MEDS: LORAZEPAM 1 MG TABLET PO PRN (02:17)
--- NOTE | 2017-02-04 02:17 | NUR ---
RN NOTED PT VERBALIZING HE WANTS TO GO HOME, AND PT IS GETTING AGITATED. ATIVAN 1 MG GIVEN PO. WILL CONTINUE TO MONITOR PT.
[2017-02-04] MEDS: ALBUTEROL HALF STRENGTH 1.25 MG/3 ML VIAL.NEB NEB SCH ×6 (03:38→23:29)
[2017-02-04] MEDS: IPRATROPIUM NEB FS 0.5 MG/2.5 ML AMPUL.NEB NEB SCH ×6 (03:38→23:29)
[2017-02-04] MEDS: METOCLOPRAMIDE HCL 10 MG TABLET PO SCH ×3 (05:26→21:41)
[2017-02-04 06:43] LABS: BASOPHILS # (AUTO) 0.1 /CMM (0.0-0.2); BASOPHILS % (AUTO) 0.6 % (0.0-2.0); EOSINOPHILS # (AUTO) 0.4 /CMM (0.0-0.7); HEMATOCRIT 40 % (39-51); HEMOGLOBIN 13.2 g/dL (13.5-17.5); LYMPHOCYTES # (AUTO) 2.1 /CMM (0.8-4.8); LYMPHOCYTES % (AUTO) 23.7 % (20.0-44.0); MEAN CORPUSCULAR HEMOGLOBIN 29 PG (26.0-33.0); MEAN CORPUSCULAR HGB CONC 33 g/dl (31.0-36.0); MEAN CORPUSCULAR VOLUME 88 fL (80-96); MONOCYTES % (AUTO) 11.4 % (2.0-12.0); NEUTROPHILS # (AUTO) 5.4 /CMM (1.8-8.9); NEUTROPHILS % (AUTO) 60.3 % (43.0-81.0); PLATELET COUNT (AUTO) 608 /CMM (150-450); RDW COEFFICIENT OF VARIATION 13.7 (11.5-15.0); RED BLOOD CELL COUNT(AUTO) 4.52 MIL/uL (4.5-6.0)
[2017-02-04 06:59] LABS: CALCIUM, SERUM 9.2 mg/dL (8.5-10.1); CREATININE 1.5 mg/dL (0.6-1.3); POTASSIUM 3.6 mmol/L (3.5-5.1)
--- NOTE | 2017-02-04 07:21 | NUR ---
RN NOTES PT AWAKE, NO SOB, NOT IN DISTRESS, TOLERATING ROOM AIR WITH GOOD SATURATION. PT APPEARS COMFORTABLE IN BED. VITAL SIGNS STABLE, NO EPISODE OF NAUSEA AND VOMITING. PT GETS AGITATED BECAUSE HE WANTED TO GO HOME , ATIVAN EFFECTIVE. FALL PRECAUTION OBSERVED. ALL NEEDS ATTENDED. SITTER AT BEDSIDE. WILL ENDORSE TO MORNING RN FOR CONTINUITY OF CARE.
--- NOTE | 2017-02-04 07:30 | NUR ---
MS RN AM NOTES PT IN BED, AWAKE, ALERT AND ORIENTED X3, SITTER AT BEDSIDE, ON RA, NO SOB, NOT IN DISTRESS, DENIES ANY PAIN AND DISCOMFORT. NO IV ACCESS, SEE NURSING FLOWSHEET FOR SKIN ISSUES, ON SOFT DIET, AMBULATORY/BRP. CALL IGHT WITHIN REACH, SAFETY MEASURE IN PLACE. WILL CONTINUE TO MONITOR PT.
[2017-02-04 08:00] VITALS: BP 133/84
[2017-02-04] MEDS: PANTOPRAZOLE 40 MG TABLET.DR PO SCH (08:44)
[2017-02-04] MEDS: ACIDOPHILUS/BULGARICUS 1 EACH TAB.CHEW PO SCH ×3 (08:44→16:46)
[2017-02-04] MEDS: NEOMY SULF/BACITRAC ZN/POLY 15 GM TUBE TP SCH (08:45)
[2017-02-04] MEDS: AMLODIPINE BESYLATE 5 MG TABLET PO SCH (08:45)
--- NOTE | 2017-02-04 09:30 | NUR ---
MS RN NOTE ADMINISTERED DUE MEDS.
[2017-02-04] MEDS: NICOTINE PATCH (14MG) 14 MG PATCH.TD24 TD SCH (12:30)
[2017-02-04 15:51] VITALS: BP 121/67
[2017-02-04 18:00] VITALS: BP 121/67
--- NOTE | 2017-02-04 18:18 | NUR ---
MS RN CLOSING NOTES PT IN BED, AWAKE, ALERT AND ORIENTED X3, SITTER AT BEDSIDE, ON RA, NO SOB, NOT IN DISTRESS, DENIES ANY PAIN AND DISCOMFORT. NO IV ACCESS, ON SOFT DIET, AMBULATORY/BRP. CALL LIGHT WITHIN REACH, SAFETY MEASURE IN PLACE. STILL FOR PLACEMENT PER CM. ALL NEEDS MET.WILL ENDORSE TO NEXT SHIFT FOR TIFFANY.
--- NOTE | 2017-02-04 19:15 | NUR ---
RN NOTES PT AWAKE, ALERT AND ORIENTED X3, NO SOB, NOT IN DISTRESS, DENIES ANY PAIN AND DISCOMFORT. VITAL SIGNS STABLE, PT APPEARS COMFORTABLE IN BED. SITTER AT BEDSIDE. PT ON BPR, SAFETY MEASURES IN PLACED. CALL LIGHT WITH IN REACH. KEPT COMFORTABLE AND ATTENDED. WILL CONTINUE TO MONITOR PT.
[2017-02-04 22:00] VITALS: BP 139/100
[2017-02-05] VITALS (7 sets, daily range): BP systolic 132–139; BP diastolic 77–91
[2017-02-05] MEDS: IPRATROPIUM NEB FS 0.5 MG/2.5 ML AMPUL.NEB NEB SCH ×6 (03:26→23:30)
[2017-02-05] MEDS: ALBUTEROL HALF STRENGTH 1.25 MG/3 ML VIAL.NEB NEB SCH ×6 (03:26→23:30)
--- NOTE | 2017-02-05 03:26 | NUR ---
RN NOTES PT REFUSED FOR BREATHING TREATMENT.
[2017-02-05] MEDS: METOCLOPRAMIDE HCL 10 MG TABLET PO SCH ×3 (05:19→21:28)
[2017-02-05 06:20] LABS: BASOPHILS # (AUTO) 0.1 /CMM (0.0-0.2); BASOPHILS % (AUTO) 0.8 % (0.0-2.0); EOSINOPHILS # (AUTO) 0.4 /CMM (0.0-0.7); EOSINOPHILS % (AUTO) 4.9 % (0.0-6.0); HEMATOCRIT 39 % (39-51); HEMOGLOBIN 12.9 g/dL (13.5-17.5); LYMPHOCYTES # (AUTO) 2.3 /CMM (0.8-4.8); LYMPHOCYTES % (AUTO) 29.7 % (20.0-44.0); MEAN CORPUSCULAR HEMOGLOBIN 29 PG (26.0-33.0); MEAN CORPUSCULAR HGB CONC 33 g/dl (31.0-36.0); MEAN CORPUSCULAR VOLUME 88 fL (80-96); MONOCYTES # (AUTO) 0.9 /CMM (0.1-1.30); MONOCYTES % (AUTO) 11.1 % (2.0-12.0); NEUTROPHILS # (AUTO) 4.1 /CMM (1.8-8.9); NEUTROPHILS % (AUTO) 53.5 % (43.0-81.0); PLATELET COUNT (AUTO) 596 /CMM (150-450); RDW COEFFICIENT OF VARIATION 14.2 (11.5-15.0); RED BLOOD CELL COUNT(AUTO) 4.42 MIL/uL (4.5-6.0); WHITE BLOOD COUNT (AUTO) 7.7 K/uL (4.3-11.0)
[2017-02-05 06:28] LABS: CALCIUM, SERUM 8.9 mg/dL (8.5-10.1); CREATININE 1.5 mg/dL (0.6-1.3); POTASSIUM 3.8 mmol/L (3.5-5.1)
--- NOTE | 2017-02-05 06:43 | NUR ---
RN NOTES PT AWAKE, NO SOB, NOT IN DISTRESS, TOLERATING ROOM AIR WITH GOOD SATURATION. PT APPEARS COMFORTABLE IN BED. VITAL SIGNS STABLE, NO EPISODE OF NAUSEA AND VOMITING. PT QUIET, CALM AND COOPERATIVE WITH CARE. PT FALL PRECAUTION OBSERVED. ALL NEEDS ATTENDED. SITTER AT BEDSIDE. PT IN STABLE CONDITION WITHIN THE SHIFT. WILL ENDORSE TO MORNING RN FOR CONTINUITY OF CARE.
[2017-02-05] MEDS: NICOTINE PATCH (14MG) 14 MG PATCH.TD24 TD SCH (08:28)
[2017-02-05] MEDS: ACIDOPHILUS/BULGARICUS 1 EACH TAB.CHEW PO SCH ×3 (08:28→17:00)
[2017-02-05] MEDS: PANTOPRAZOLE 40 MG TABLET.DR PO SCH (08:28)
[2017-02-05] MEDS: AMLODIPINE BESYLATE 5 MG TABLET PO SCH (08:29)
[2017-02-05] MEDS: NEOMY SULF/BACITRAC ZN/POLY 15 GM TUBE TP SCH (08:30)
--- NOTE | 2017-02-05 09:30 | NUR ---
MS RN NOTE ADMINISTERED DUE MEDS.
--- NOTE | 2017-02-05 14:30 | NUR ---
RN NOTES SEEN BY DR. RODRIGUEZ AND DR. JULIEN EARLIER.
--- NOTE | 2017-02-05 18:38 | NUR ---
RN Closing Notes Pt in bed awake A & O x3. On RA, No SOB, Not in distress, denies pain and discomfort. No IV access, on soft diet, Pt ambulatory/ BRP. Call light within reach, Safety measures in place. Still for placement per CM. All needs met. PM care done. Will endorse to the next shift for TIFFANY..
--- NOTE | 2017-02-05 19:15 | NUR ---
RN NOTES PT AWAKE, ALERT AND ORIENTED X3, NO SOB, NOT IN DISTRESS, DENIES ANY PAIN AND DISCOMFORT. VITAL SIGNS STABLE, PT APPEARS COMFORTABLE IN BED. SITTER AT BEDSIDE. PT IS AMBULATORY ON BPR, SAFETY MEASURES IN PLACED. CALL LIGHT WITH IN REACH. KEPT COMFORTABLE AND ATTENDED. WILL CONTINUE TO MONITOR PT.
--- NOTE | 2017-02-05 23:40 | NUR ---
RN NOTES PT VERBALIZING HE WANTS TO GO HOME AT THIS TIME. RISK AND BENEFITS EXPLAINED TO THE PT. TOLD PT TO STAY UNTIL MORNING TO BE ASSISTED BY THE PLUG MAKER AND GLOST KILN PLACER ON DISCHARGE. PT INSISTED TO GO AND BECOMING AGITATED, ATIVAN 1 MG OFFERED AND REFUSED TO TAKE IT, HE SAID HE DOESN'T NEED IT, HE'S FINE. WILL CALL BROTHER JENNIE TO TALK TO THE PT.
--- NOTE | 2017-02-05 23:48 | NUR ---
RN NOTES PT REFUSED BREATHING TREATMENT. PT IS AGITATED AT THIS TIME, INSISTING HE WANTS TO GO HOME NOW.
--- NOTE | 2017-02-06 00:05 | NUR ---
RN NOTES CALLED BROTHERJENNIE AND SPOKE TO THE PT. BROTHER TRIED TO CONVINCE THE PT TO STAY UNTIL MORNING, BUT PT INSIST TO GO. PT STARTED TO DRESS UP AT THIS TIME.
--- NOTE | 2017-02-06 00:20 | NUR ---
RN NOTES PT WAS DRESSED UP ALREADY AND READY TO GO. NURSING CHEMICAL PROJECT ENGINEER MADE AWARE AND SPOKE TO THE THE PT. RISK AND BENEFITS WERE EXPLAINED. PT STRONGLY REFUSED TO STAY.
--- NOTE | 2017-02-06 00:30 | NUR ---
RN NOTES PT SIGNED THE AMA FORM.
--- NOTE | 2017-02-06 00:35 | NUR ---
RN NOTES PT REFUSED TO USE WHEELCHAIR, ASSISTED BY THE KNIFE CHANGER TO THE LOBBY, WITH ALL HIS BELONGINGS. PT ALERT AND ORIENTED X3, DENIES ANY PAIN AND DISCOMFORT. NO SOB, NOT IN DISTRESS, ON ROOM AIR TOLERATED WELL. PT LEFT IN STABLE CONDITION, AMBULATORY WITH STEADY GAIT.
[2017-02-06] MEDS: IPRATROPIUM NEB FS 0.5 MG/2.5 ML AMPUL.NEB NEB SCH (03:29)
[2017-02-06] MEDS: ALBUTEROL HALF STRENGTH 1.25 MG/3 ML VIAL.NEB NEB SCH (03:29)
== END 2017-02-06 00:35 | disposition left against medical advice (07) | DRG 720 ==
LOC: ER 18:27 → EDBD 18:27 → ICU 20:03 → MEDSG2 02-01 19:28
PROVIDERS: ADMIT Nurse Practitioner Acute Care; ATTEND Nurse Practitioner Acute Care
PROC: 5A09457 Assistance with Respiratory Ventilation, 24-96 Consecutive Hours, Continuous Positive Airway Pressure (ICD-10-PCS; principal; 2017-01-15)
PROC: 0BH17EZ Insertion of Endotracheal Airway into Trachea, Via Natural or Artificial Opening (ICD-10-PCS; principal; 2017-01-15)
PROC: 5A1955Z Respiratory Ventilation, Greater than 96 Consecutive Hours (ICD-10-PCS; 2017-01-16)
DX: A41.9 Sepsis, unspecified organism (principal); I21.4 Non-ST elevation (NSTEMI) myocardial infarction; N17.0 Acute kidney failure with tubular necrosis; J69.0 Pneumonitis due to inhalation of food and vomit; J96.01 Acute respiratory failure with hypoxia; J96.02 Acute respiratory failure with hypercapnia; G93.40 Encephalopathy, unspecified; G93.41 Metabolic encephalopathy; M62.82 Rhabdomyolysis; E83.39 Other disorders of phosphorus metabolism; Z59.0 Homelessness; J98.11 Atelectasis; F19.10 Other psychoactive substance abuse, uncomplicated; E87.5 Hyperkalemia; D64.9 Anemia, unspecified; D75.89 Other specified diseases of blood and blood-forming organs; E83.51 Hypocalcemia; E86.0 Dehydration; I11.0 Hypertensive heart disease with heart failure; I50.33 Acute on chronic diastolic (congestive) heart failure; R65.20 Severe sepsis without septic shock
CPT/HCPCS: 31720; 36415; 36600; 71010-TC; 76770-TC; 80048-TC; 80061-TC; 80074; 80076-TC; 80305; 81000-TC; 82306; 82378; 82550-TC; 82553-TC; 82570-TC; 82728-TC; 82746; 82803-TC; 82962-TC; 83540-TC; 83605-TC; 83615-TC; 83735-TC; 83880; 83935-TC; 84100-TC; 84300-TC; 84443-TC; 84478-TC; 84484-TC; 84550-TC; 85025-TC; 85610-TC; 85652-TC; 85730-TC; 87040-TC; 87070-TC; 87081-TC; 87086-TC; 87400; 92611-TC; 93307-TC; 94002-TC; 94003-TC; 94640-TC; 94760-TC; 94762-TC; 94799-TC; 97001-TC; 97116-TC; 97530-TC; 99082-TC; A4216; A4606; C9113; G0480; G6039-TC; J0360; J0610; J1644; J1815; J1940; J1956; J2060; J2270; J2310; J2543; J2765; J3370; J3480; J3490; J7030; J7040; J7050; J7060; J7070; J8597; Z7610